=== PATIENT | female | born 2000 | race Caucasian/White ===

== ENCOUNTER 2020-12-03 19:05 | Emergency (ER) | payer BC, SELFPAY ==
--- NOTE | ~2020-12-03 | XR_ITS ---
EXAMINATION: XR chest 1V portable 12/03/2020 19:33 INDICATION: Chest discomfort PROCEDURE: 2 view chest COMPARISON: No prior studies for comparison. FINDINGS: The lungs are clear. The cardiomediastinal silhouette is within normal limits. There are no pleural effusions. There is no pneumothorax suspected. IMPRESSION: 1: NO ACUTE CARDIOPULMONARY DISEASE. Reviewed, dictated and finalized at location A.
--- NOTE | 2020-12-03 19:20 | ECG_ITS ---
Measurements Intervals [place] Rate: 121 P: 70 NH: 120 QRS: 2 QRSD: 85 T: 20 QT: 317 QTc: 451 Interpretive Statements SINUS TACHYCARDIA BORDERLINE ST ABNORMALITY- ANTEROLAT/INF LEADS BASELINE ARTIFACT- II, III, AVR, AVF, V2-V6 ABNORMAL ECG Electronically Signed On 12-03-2020 20:15:05 CDT by Gokul Hearn D.O.
--- NOTE | 2020-12-03 19:25 | ED.GENADULT ---
HPI - General Adult General Chief complaint: Chest Pain Stated complaint: chest pain Time Seen by Provider: 12/03/20 19:12 History of Present Illness HPI narrative: Patient 20-year-old female presents the emergency department with chief complaint of chest pain and not feeling well. The patient reports that yesterday she started taking Lexapro 10 mg and since then started feeling nauseated had a feeling of anxiety throughout her entire body and felt very jittery. The patient reports she is never been on this medication before in the past reports that its not improved by anything nor is it worsened by anything. The patient states she feels extremely anxious right now the patient denies abdominal pain denies direct chest pain with this. Related Data Home Medications Medication Instructions Recorded Confirmed escitalopram oxalate mg 12/03/20 Allergies Allergy/AdvReac Type Severity Reaction Status Date / Time No Known Allergies Allergy Verified 12/03/20 20:01 Review of Systems Review of Systems: Narrative: A 10 system review of systems was completed on the patient and is negative except for what is stated in the HPI. Nursing and ancillary documentation was reviewed. PMFSH Comments Patient denies illicit drug use Exam Narrative: Exam Narrative: GENERAL: Well-appearing, well-nourished, and in no acute distress. HEAD: Normocephalic, atraumatic. EYES: PERRLA and EOMI. ENT: Nares clear, no rhinorrhea or epistaxis. Mucous membranes moist. NECK: Supple. CHEST: Clear to auscultation. No respiratory distress. HEART: Regular rate and rhythm. No murmur heard. Normal peripheral pulses. ABDOMEN: Soft, nontender, nondistended, normal active bowel sounds. EXTREMITIES: Normal range of motion. No edema. SKIN: Warm, dry, no rash. NEURO: No focal deficits. Alert and oriented x3. PSYCH: Normal mood and affect. Course Vital Signs Vital signs: Vital Signs Temperature 37.1 C 12/03/20 20:03 Pulse Rate 118 H 12/03/20 20:03 Respiratory Rate 12/03/20 20:03 Blood Pressure 126/78 12/03/20 20:03 Pulse Oximetry 100 12/03/20 20:03 Temperature 37.1 C 12/03/20 20:03 Pulse Rate 118 H 12/03/20 20:03 Respiratory Rate 12/03/20 20:03 Blood Pressure 126/78 12/03/20 20:03 Pulse Oximetry 100 12/03/20 20:03 Medical Decision Making Vital Signs Vital Signs: Vital Signs Temperature 37.1 C 12/03/20 20:03 Pulse Rate 118 H 12/03/20 20:03 Respiratory Rate 20 12/03/20 20:03 Blood Pressure 126/78 12/03/20 20:03 Pulse Oximetry 100 12/03/20 20:03 Temperature 37.1 C 12/03/20 20:03 Pulse Rate 118 H 12/03/20 20:03 Respiratory Rate 12/03/20 20:03 Blood Pressure 126/78 12/03/20 20:03 Pulse Oximetry 100 12/03/20 20:03 Lab Data Result diagrams: 12/03/20 20:27 12/03/20 20:27 Labs: Lab Results 12/03/20 12/03/20 12/03/20 Range/Units 20:27 20:27 20:27 WBC 7.1 (4.5-10.0) K/mm3 RBC 4.56 (4.2-5.4) M/mm3 Hgb 12.9 (12.0-15.0) g/dL Hct 39.2 (37.0-47.0) % MCV 86.0 (80-100) fl MCH 28.3 (26-34) pg MCHC 32.9 (32-36) g/dl RDW 12.4 (11.5-14.5) % Plt Count 287 (150-375) k/mm3 MPV 10.6 H (7.4-10.4) fl Immature Gran % (Auto) 0.3 (0-0.5) % Neut % (Auto) 62.3 (45.5-73.1) % Lymph % (Auto) 27.3 (18.3-44.2) % [place] % (Auto) 8.5 (2.6-8.5) % Eos % (Auto) 0.8 (0-4.4) % Baso % (Auto) 0.8 (0.2-1.2) % Lymph # (Auto) 1.95 (0.9-3.2) K/mm3 [place] # (Auto) 0.6 (0.1-0.6) K/mm3 Eos # (Auto) 0.1 (0-0.3) K/mm3 Baso # (Auto) 0.1 (0.0-0.1) K/mm3 Abs Immat Gran (auto) 0.02 (0.00-0.031) K/mm3 Absolute Neuts (auto) 4.4 (1.3-6.7) K/mm3 Absolute Nucleated RBC 0.0 (0.0-0.012) K/mm3 Nucleated RBC % 0.0 (0.0-0.2) % Sodium Cancelled Potassium Cancelled Chloride Cancelled Carbon Dioxide Cancelled Anion Gap Cancelled BUN Cancelled
[2020-12-03 20:03] VITALS: BP 126/78; PULSE 118; RESP 20; TEMP 37.1; O2SAT 100
[2020-12-03] MEDS: LORazepam INJ (*CRX) 2 MG/ML VIAL 1 MG IV PUSH (20:11)
[2020-12-03] MEDS: SODIUM CHLORIDE 0.9% IV 1,000 ML 999 ML IV CONT (20:11)
[2020-12-03] MEDS: ONDANSETRON INJ 4 MG/2 ML VIAL IV PUSH (20:11)
[2020-12-03 20:33] LABS: Basophils Absolute Auto 0.1 K/mm3 (0.0-0.1); Basophils Percent Auto 0.8 % (0.2-1.2); Eosinophils Absolute Auto 0.1 K/mm3 (0-0.3); Eosinophils Percent Auto 0.8 % (0-4.4); Hematocrit 39.2 % (37.0-47.0); Hemoglobin 12.9 g/dL (12.0-15.0); Immature Granulocyte Absolute 0.02 K/mm3 (0.00-0.031); Immature Granulocyte Percent A 0.3 % (0-0.5); Lymphocytes Absolute Auto 1.95 K/mm3 (0.9-3.2); Lymphocytes Percent Auto 27.3 % (18.3-44.2); Mean Corpuscular HGB Conc 32.9 g/dl (32-36); Mean Corpuscular Hemoglobin 28.3 pg (26-34); Mean Platelet Volume 10.6 fl (7.4-10.4); Monocytes Absolute Auto 0.6 K/mm3 (0.1-0.6); Monocytes Percent Auto 8.5 % (2.6-8.5); Neutrophils Absolute Auto 4.4 K/mm3 (1.3-6.7); Neutrophils Percent Auto 62.3 % (45.5-73.1); Platelet Count Result 287 k/mm3 (150-375); Red Blood Count 4.56 M/mm3 (4.2-5.4); Red Cell Distribution Width 12.4 % (11.5-14.5); White Blood Count 7.1 K/mm3 (4.5-10.0)
[2020-12-03 20:57] LABS: Lactic Acid Reflex 1.5 mmol/L (0.7-2.1)
[2020-12-03 20:59] LABS: Alanine Aminotransferase 12 U/L (4-35); Albumin Level 4.6 g/dL (3.5-5.1); Alkaline Phosphatase 66 U/L (38-126); Anion Gap 10 mmol/L (8-16); Aspartate Amino Transferase 26 U/L (14-36); Bilirubin,Total 1.2 mg/dL (0.2-1.3); Blood Urea Nitrogen 13 mg/dL (7-17); Calcium 9.3 mg/dL (8.4-10.2); Carbon Dioxide 25 mmol/L (22-30); Chloride 105 mmol/L (98-107); Estimated CRCL calculation 88 ml/min; Estimated Glomerular Filt Rate > 60; Glucose 98 mg/dL (65-105); Magnesium 1.8 mg/dL (1.6-2.3); Potassium 3.8 mmol/L (3.4-5.0); Sodium 140 mmol/L (137-145)
[2020-12-03 21:10] LABS: Troponin I < 0.012 ng/mL (0.000-0.034)
[2020-12-03 21:14] VITALS: BP 126/78; PULSE 86; RESP 21; O2SAT 100
== END 2020-12-03 21:17 | disposition home or self-care (01) ==
PROVIDERS: Emergency Provider Emergency Medicine; PCP Physician Assistant
DX: R07.9 Chest pain, unspecified (principal); R11.0 Nausea; T43.225A Adverse effect of selective serotonin reuptake inhibitors, initial encounter
CPT/HCPCS: 36415; 71045; 80053; 83605; 83735; 84484; 85025; 93005; 96361; 96374; 96375; 99284; J2060; J2405; J7030

== ENCOUNTER 2021-05-01 13:29 | Emergency (ER) | payer BC, SELFPAY ==
[2021-05-01 13:37] VITALS: BP 109/70; PULSE 100; RESP 16; TEMP 36.4; O2SAT 99
--- NOTE | 2021-05-01 15:11 | ED.DENTAL ---
HPI - Dental/Oral General Chief complaint: Dental/Oral Stated complaint: left cheek swollen Time Seen by Provider: 05/01/21 15:11 Source: patient Mode of arrival: ambulatory Limitations: no limitations History of Present Illness HPI Narrative: Kandi Dow is a 20-year-old female with history of anxiety and depression, who comes with left cheek swelling that may be due to dental fracture or dental abscess Related Data Home Medications Medication Instructions Recorded Confirmed escitalopram oxalate mg 12/03/20 Allergies Allergy/AdvReac Type Severity Reaction Status Date / Time escitalopram [From Lexapro] Allergy Palpitation Verified 05/01/21 14:12 s Review of Systems Review of Systems: CONSTITUTIONAL: Denies fever, chills, sweats. EYES: Denies visual changes, redness, discharge. ENT: Denies rhinorrhea, congestion, sore throat, otalgia. CARDIOVASCULAR: Denies chest pain, palpitations, edema. RESPIRATORY: Denies dyspnea, wheezing, cough GASTROINTESTINAL: Denies abdominal pain, nausea, vomiting, diarrhea. GENITOURINARY: Denies dysuria, hematuria, abnormal discharge SKIN: Denies rash or itching. NEUROLOGIC: Denies numbness, or focal weakness. PSYCHIATRIC: Denies anxiety or depression. Left-sided cheek swelling/tenderness PMFSH Past Medical History Medical History Anxiety Depression Social History Social History (Updated 05/01/21 @ 15:15 by Kelsie Villela CNP) Smoking status: Current every day smoker Tobacco type: e-cigarettes/vaping Alcohol intake: current Comments At time of signature, I agree with nursing past medical, surgical, social and family history. There is no relevant family history pertinent to the presenting complaint. Exam Narrative: GENERAL: This is a well-nourished, well-developed patient, in moderate distress. HEAD: normocephalic, atraumatic. EYES: Sclera clear/white. Vision is grossly intact. EARS: External ears normal. Hearing grossly intact. NOSE: External nose normal without nasal discharge, nares without redness, no rhinorrhea. THROAT: Mucous membranes moist, posterior pharynx erythema, left cheek tenderness and swelling, tender upper gum posterior molar NECK: Neck supple, non-tender CARDIOVASCULAR: Regular rate and rhythm without murmurs, gallops, or rubs. RESPIRATORY: Clear to auscultation. Breath sounds equal bilaterally. No wheezes, rales, or rhonchi. GASTROINTESTINAL: Abdomen soft, SKIN: warm, intact with no suspicious lesions or rash, good texture and turgor. NEURO: awake, alert, and oriented to person, place and time. There were no obvious focal neurologic abnormalities. Steady gait EXTREMITIES: Normal range of motion. BACK: Nontender without deformity Course Course Emergency Course: Patient comes with swollen left cheek and possible dental problem Started on amoxicillin and ibuprofen Vital Signs Vital signs: Vital Signs Temperature 97.6 F 05/01/21 13:37 Pulse Rate 100 05/01/21 13:37 Respiratory Rate 16 05/01/21 13:37 Blood Pressure 109/70 05/01/21 13:37 Pulse Oximetry 99 05/01/21 13:37 Temperature 97.6 F 05/01/21 13:37 Pulse Rate 100 05/01/21 13:37 Respiratory Rate 16 05/01/21 13:37 Blood Pressure 109/70 05/01/21 13:37 Pulse Oximetry 99 05/01/21 13:37 MDM - Dental/Oral Differential Diagnosis Differential diagnosis: Likely gingival abscess, dental caries, toothache, dental abscess and other Critical Care Time Critical Care Time Critical Care Time: No Discharge Plan Discharge Clinical Impression: Dental abscess Patient Disposition: Home, Self-Care Condition: Stable Instructions: Antibiotic Form, Dental Abscess (ED) Additional Instructions: Use ibuprofen for pain as needed Gargle with salt water Prescriptions: New amoxicillin 875 mg tablet 875 mg PO Q12H Qty: 20 RF: 0 ibuprofen 600 mg tablet 600 mg PO TID PRN (Reason: p
== END 2021-05-01 15:25 | disposition home or self-care (01) ==
PROVIDERS: Emergency Provider Nurse Practitioner
DX: K04.7 Periapical abscess without sinus (principal); F17.290 Nicotine dependence, other tobacco product, uncomplicated
CPT/HCPCS: 99213; G0463

== ENCOUNTER 2021-12-11 12:30 | Day surgery (SDC) | payer BC, SELFPAY ==
[2021-12-11] VITALS (13 sets, daily range): BP systolic 86–126; BP diastolic 44–76; PULSE 74–147; RESP 16–22; TEMP 36.6–36.9; O2SAT 98–100
--- NOTE | ~2021-12-11 | CT_ITS ---
EXAMINATION: CT abdomen pelvis w con DATE: 12/11/2021 13:40 INDICATION: Right lower quadrant abdominal pain, nausea TECHNIQUE: Computed tomography (CT) of the abdomen and pelvis was performed with 96 CC Omnipaque 300 intravenous contrast. Automated exposure control and iterative reconstruction technique were employed . Exam dose: 171.66 mGy-cm total exam DLP. COMPARISON: None. FINDINGS: The lung bases are clear. Normal heart size. No pericardial or pleural effusion. The liver, gallbladder, bile ducts, spleen, pancreas and pancreatic duct are unremarkable. Normal mor phology of the adrenal glands. No renal mass lesion or urinary tract calculus or hydroureteronephrosi s. The uterus and urinary bladder are unremarkable. Approximately 5 x 6.4 cm left adnexal soft tissue mass or complicated fluid collection with thin soft tissue rim. There is mild free fluid accumulation in the dependent right lower pelvis. 5.4 x 6.2 mm appendicolith with severe thickening of the appendiceal wall or dilatation of the append ix up to 1.5 cm. There is surrounding fluid and soft tissue fat infiltration consistent with prominen t periappendiceal inflammation. No suspicious osteolytic or osteosclerotic lesions are noted. IMPRESSION: Large calcified appendicolith, appendicitis, prominent periappendiceal inflammation and mild fluid accumulation 5 x 6.4 cm left adnexal cystic mass, possibly hemorrhagic cyst Mild free fluid in the dependent right pelvis Reviewed, dictated and finalized at [facility] Reviewed, dictated and finalized at [facility]. IMPRESSION: Large calcified appendicolith, appendicitis, prominent periappendi ceal inflammation and mild fluid accumulation 5 x 6.4 cm left adnexal cystic mass, possibly hemorrhagic cyst Mild free fluid in the dependent right pelvis
[2021-12-11 13:00] LABS: Basophils Percent Auto 0.4 % (0.2-1.2); Eosinophils Percent Auto 0.2 % (0-4.4); Hematocrit 37.7 % (37.0-47.0); Hemoglobin 12.1 g/dL (12.0-15.0); Immature Granulocyte Absolute 0.04 K/mm3 (0.00-0.031); Immature Granulocyte Percent A 0.4 % (0-0.5); Lymphocytes Absolute Auto 0.73 K/mm3 (0.9-3.2); Lymphocytes Percent Auto 7.2 % (18.3-44.2); Mean Corpuscular HGB Conc 32.1 g/dl (32-36); Mean Corpuscular Hemoglobin 27.1 pg (26-34); Mean Corpuscular Volume 84.5 fl (80-100); Mean Platelet Volume 10.4 fl (7.4-10.4); Monocytes Absolute Auto 0.5 K/mm3 (0.1-0.6); Neutrophils Absolute Auto 8.7 K/mm3 (1.3-6.7); Neutrophils Percent Auto 86.8 % (45.5-73.1); Platelet Count Result 321 k/mm3 (150-375); Red Blood Count 4.46 M/mm3 (4.2-5.4); White Blood Count 10.1 K/mm3 (4.5-10.0)
[2021-12-11 13:03] LABS: Appearance Urine Clear (Clear); Bilirubin Urine 1+ (Negative); Blood Urine Trace-lysed (Negative); Color Urine Yellow (Yellow); Glucose Urine UA Negative (Negative); Ketones Urine 4+ mg/dL (Negative); Leukocyte Esterase Ur Negative LEU/UL (Negative); Nitrate Urine Negative (Negative); Protein Urine Negative (Negative); Specific Grav Ur 1.025 (1.001-1.035)
[2021-12-11 13:08] LABS: Mucus Urine Moderate /lpf; Squamous Epithelial Cell Urine Moderate /hpf (Few); WBC Urine 0-3 /hpf
[2021-12-11 13:09] LABS: Add Urine Microscopic? YES
[2021-12-11 13:09] LABS: Alanine Aminotransferase 10 U/L (6-35); Albumin Level 4.5 g/dL (3.5-5.1); Alkaline Phosphatase 89 U/L (38-126); Anion Gap 11 mmol/L (8-16); Aspartate Amino Transferase 21 U/L (14-36); Bilirubin,Total 1.3 mg/dL (0.2-1.3); Blood Urea Nitrogen 11 mg/dL (7-17); Calcium 9.1 mg/dL (8.4-10.2); Carbon Dioxide 23 mmol/L (22-30); Chloride 102 mmol/L (98-107); Estimated CRCL calculation 87 ml/min; Estimated Glomerular Filt Rate > 60; Glucose 85 mg/dL (65-110); Lipase 50 U/L (23-300); Potassium 3.9 mmol/L (3.4-5.0); Sodium 136 mmol/L (137-145)
--- NOTE | 2021-12-11 14:21 | ED.GENADULT ---
HPI - General Adult General Chief complaint: Abdominal Pain Stated complaint: RLQ abd pain Time Seen by Provider: 12/11/21 12:55 History of Present Illness HPI narrative: 21-year-old female presenting to the emergency department for evaluation of right lower quadrant pain. Patient states approximately 2 hours prior to arrival she began having right lower quadrant pain. Patient denies any associated nausea vomiting or diarrhea with it. Patient denies any previous abdominal surgical history. Patient denies any prior history of ovarian cysts or ovarian torsion. Patient is approximately 1.5 weeks until the start of her next menstrual cycle. Patient describes midline suprapubic pain that radiates to her right lower quadrant and up to her right upper quadrant. Related Data Home Medications Medication Instructions Recorded Confirmed desogestrel 0.15 mg-ethinyl tablet 12/11/21 12/11/21 estradiol 0.03 mg tablet (Isibloom) sertraline 50 mg tablet tablet 12/11/21 Allergies Allergy/AdvReac Type Severity Reaction Status Date / Time escitalopram [From Lexapro] Allergy Palpitation Verified 12/11/21 12:38 s Review of Systems Review of Systems: CONSTITUTIONAL: Denies fever, chills, or sweats. EYES: Denies visual changes, redness, or discharge. ENT: Denies rhinorrhea, congestion, sore throat, or otalgia. CARDIOVASCULAR: Denies chest pain, palpitations, or edema. RESPIRATORY: Denies cough or dyspnea. GASTROINTESTINAL: See HPI GENITOURINARY: Denies dysuria or hematuria. SKIN: Denies rash or itching. MUSCULOSKELETAL: Denies back pain, joint pain, or myalgia. NEUROLOGIC: Denies headache, numbness, or weakness. [facility] Past Medical History Medical History (Updated 12/11/21 @ 19:[address] MD) Anxiety Depression Depression Vaping nicotine dependence, non-tobacco product Social History Social History (Updated 05/01/21 @ 15:15 by Kelsie Villela CNP) Smoking status: Current every day smoker Tobacco type: e-cigarettes/vaping Alcohol intake: current Exam Narrative: APPEARANCE: Well appearing, no pain, no distress, well-nourished. HEAD: normocephalic, atraumatic. EYES: PERRLA/EOMI, conjunctivae clear. NOSE: Normal no drainage THROAT: Pharynx clear, no exudate. NECK: Supple. No adenopathy, no masses. RESPIRATORY: Airway patent, respirations nonlabored. Clear to auscultation bilaterally, no rales, rhonchi, wheezing. CARDIOVASCULAR: Regular rate and rhythm without murmurs rubs or gallops. ABDOMINAL: Suprapubic and right lower quadrant tenderness to palpation. No rebound, no guarding MUSCULOSKELETAL: Moves all extremities. Strength/ROM intact, No edema, No calf tenderness. NEURO: Alert. Cranial nerves II through XII intact. Grossly intact SKIN: Warm, dry. Normal Color PSYCHIATRIC: Normal affect/mood. Course Course Emergency Course: CT scan showed evidence of appendicitis. Case discussed with Dr. Claudio from surgery due to the appendicitis and significant appendicolith. Case was also discussed with Dr. Calderon due to the left-sided adnexal cystic mass. 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 Vital Signs Vital signs: Vital Signs Temperature 98.4 F 12/11/21 12:35 Pulse Rate 147 H 12/11/21 12:35 Respiratory Rate 22 H 12/11/21 12:35 Blood Pressure 107/60 12/11/21 12:35 Pulse Oximetry 100 12/11/21 12:35 Temperature 98.3 F 12/11/21 17:00 Pulse Rate 78 12/11/21 17:00 Respiratory Rate 16 12/11/21 17:00 Blood Pressure 118/70 12/11/21 17:00 Pulse Oximetry 100 12/11/21 17:00 Medical Decision Making Vital Signs Vital Signs: Vital Signs Temperature 98.4 F 12/11/21 12:35 Pulse Rate 147 H 12/11/21 12:35 Respiratory Rate 22 H 12/11/21 12:35 Blood Pressure 107/60 12/11/21 12:35 Pulse Oximetry 100 12/11/21 12:35 Temperature 98.3 F 12/11/21 17:00 Pulse Rate 78 12/11/21 17:00 Respiratory Rate 16 12/11/21 17:00 Blood Pressure 1
[2021-12-11] MEDS: SODIUM CHLORIDE 0.9% IV 1,000 ML 999 ML IV CONT (14:50)
[2021-12-11] MEDS: SODIUM CHLORIDE 0.9% IV 1,000 ML 125 ML IV CONT (16:49)
--- NOTE | 2021-12-11 17:02 | PM.IMHP ---
H&P: HPI History of Present Illness Date/Time: 12/11/21 17:02 Chief Complaint: Lower abdominal pain right more than left Narrative: This is 21-year-old female who presented to the emergency department for evaluation of right lower quadrant pain which she states started while she was at work yesterday at around 9:30 a.m.. She states she came home 1 hour leave from work at about 4:00 p.m. yesterday she ate minimally the rest the evening. She has not had anything to eat since going to bed last evening has had a few sips of water today. The pain is gradually got worse so she came to the emergency room today. Patient states that the pain that had been across most of the lower abdomen seemed to become more to the right lower quadrant.? Patient denies any associated nausea vomiting or diarrhea with it.? Patient denies any previous abdominal surgical history.? Patient denies any prior history of ovarian cysts or ovarian torsion.? Patient is approximately 1.5 weeks until the start of her next menstrual cycle. Patient describes midline suprapubic pain that radiates to her right lower quadrant and up to her right upper quadrant. Workup in the emergency room revealed a slightly elevated white count. Otherwise labs were pretty unremarkable. Urinalysis was normal other than some white cells in the urine but there were also epithelial cells. CT scan however showed both apparent uncomplicated appendicitis with an appendicolith and surrounding inflammation a but also a 6 cm suspected hemorrhagic left ovarian cyst. I have discussed this with Dr. Tillman in the ED and also with Dr. Elva Mckenna . Review of Systems Review of Systems: All systems reviewed & are unremarkable except as noted in HPI and below (HPI) Constitutional: Constitutional: Reports as per HPI, Denies chills and Denies fever(s) Eyes: Eyes: Reports no additional eye complaints ENT: Reports Normal hearing present and Denies dizziness Cardiovascular: Cardiovascular: Reports no additional cardiovascular complaints, Denies chest pain and Denies irregular heart rhythm Respiratory: Respiratory: Reports no additional respiratory complaints Gastrointestinal: Gastrointestinal: Reports no additional gastrointestinal complaints, Denies abdominal pain and Denies bloating Genitourinary: Genitourinary: Denies hematuria Comments: Patient has never been . test in the ED today prior to CT was negative. Last menstrual cycle was end of October 2021 Musculoskeletal: Musculoskeletal: Denies back pain Integumentary/Breasts: Skin/Breast: Reports system reviewed and no additional complaints, except as docu Neurologic: Reports Normal hearing present, Denies Abnormal speech present, Denies confusion and Denies dizziness Psychiatric: Psychiatric: Reports no additional psychiatric complaints and Denies confusion Endocrine: Endocrine: Reports no additional endocrine complaints Hematologic/Lymphatic: Hematologic/Lymphatic: Denies easy bleeding and Denies easy bruising Allergic/Immunologic: Allergic/Immunologic: Reports no additional allergic/immunologic complaints PMF Past Medical History Medical History (Updated 12/11/21 @ 17:58 by Jeffery Claudio MD) Anxiety Depression Depression Vaping nicotine dependence, non-tobacco product Social History Social History (Updated 05/01/21 @ 15:15 by Kelsie Villela CNP) Smoking status: Current every day smoker Tobacco type: e-cigarettes/vaping Alcohol intake: current Meds Home Medications and Allergies Home Medications Medication Instructions Recorded Confirmed Type desogestrel 0.15 mg-ethinyl tablet 12/11/21 12/11/21 History estradiol 0.03 mg tablet (Isibloom) sertraline 50 mg tablet tablet 12/11/21 History Allergies Allergy/AdvReac Type Severity Reaction Status Date / Time escitalopram [From Lexapro] Allergy Palpitation Verified 12/11/21 12:38 s Vital Signs Vital Signs - 24 hr
--- NOTE | 2021-12-11 17:05 | WPDANESEPPF ---
Anes - Initial Pre Proc Eval Procedure: Lap appendectomy Date/Time: 12/11/21 17:05 Surgeon: Jeffery Claudio MD Pre Op Diagnosis: Acute appendicitis Pre Op Diagnosis: Acute Appendicitis,Left Adnexal Mass Patient Data Age: 21 Gender: F Height: 1.65 m Weight: 44 kg Last Vital Signs Temp 36.8 C 12/11/21 16:00 Pulse 74 12/11/21 16:00 Resp 16 12/11/21 16:00 BP 120/76 12/11/21 16:00 Pulse Ox 100 12/11/21 16:00 Allergies Allergy/AdvReac Type Severity Reaction Status Date / Time escitalopram [From Lexapro] Allergy Palpitation Verified 12/11/21 12:38 s Home Medications Medication Instructions Recorded Confirmed Type desogestrel 0.15 mg-ethinyl tablet 12/11/21 12/11/21 History estradiol 0.03 mg tablet (Isibloom) sertraline 50 mg tablet tablet 12/11/21 History Laboratory Tests 12/11/21 12/11/21 12/11/21 12:51 12:52 12:52 WBC 10.1 K/mm3 H K/mm3 (4.5-10.0) RBC 4.46 M/mm3 M/mm3 (4.2-5.4) Hgb 12.1 g/dL g/dL (12.0-15.0) Hct 37.7 % % (37.0-47.0) MCV 84.5 fl fl (80-100) MCH 27.1 pg pg (26-34) MCHC 32.1 g/dl g/dl (32-36) RDW 13.0 % % (11.5-14.5) Plt Count 321 k/mm3 k/mm3 (150-375) MPV 10.4 fl fl (7.4-10.4) Immature Gran % (Auto) 0.4 % % (0-0.5) Neut % (Auto) 86.8 % H % (45.5-73.1) Lymph % (Auto) 7.2 % L % (18.3-44.2) [place] % (Auto) 5.0 % % (2.6-8.5) Eos % (Auto) 0.2 % % (0-4.4) Baso % (Auto) 0.4 % % (0.2-1.2) Lymph # (Auto) 0.73 K/mm3 L K/mm3 (0.9-3.2) [place] # (Auto) 0.5 K/mm3 K/mm3 (0.1-0.6) Eos # (Auto) 0.0 K/mm3 K/mm3 (0-0.3) Baso # (Auto) 0.0 K/mm3 K/mm3 (0.0-0.1) Abs Immat Gran (auto) 0.04 K/mm3 H K/mm3 (0.00-0.031) Absolute Neuts (auto) 8.7 K/mm3 H K/mm3 (1.3-6.7) Absolute Nucleated RBC 0.0 K/mm3 K/mm3 (0.0-0.012) Nucleated RBC % 0.0 % % (0.0-0.2) Sodium 136 mmol/L L mmol/L (137-145) Potassium 3.9 mmol/L mmol/L (3.4-5.0) Chloride 102 mmol/L mmol/L (98-107) Carbon Dioxide 23 mmol/L mmol/L (22-30) Anion Gap 11 mmol/L mmol/L (8-16) BUN 11 mg/dL mg/dL (7-17) Creatinine 0.60 mg/dL L mg/dL (0.7-1.0) Estim Creat Clear Calc 87 ml/min ml/min Estimated GFR > 60 (59 - ) Glucose 85 mg/dL mg/dL (65-110) Calcium 9.1 mg/dL mg/dL (8.4-10.2) Total Bilirubin 1.3 mg/dL mg/dL (0.2-1.3) AST 21 U/L U/L (14-36) ALT 10 U/L U/L (6-35) Alkaline Phosphatase 89 U/L U/L (38-126) Total Protein 9.0 g/dL H g/dL (6.3-8.2) Albumin 4.5 g/dL g/dL (3.5-5.1) Lipase 50 U/L U/L (23-300) Urine Color Yellow (Yellow) Urine Appearance Clear (Clear) Urine pH 6.0 (5.0-9.0) Ur Specific [place] 1.025 (1.001-1.035) Urine Protein Negative mg/dL mg/dL (Negative) Urine Glucose (UA) Negative mg/dL mg/dL (Negative) Urine Ketones 4+ mg/dL H mg/dL (Negative) Ur Blood (Man) Trace-lysed (Negative) Urine Nitrate Negative (Negative) Urine Bilirubin 1+ H (Negative) Urine Urobilinogen 1.0 mg/dL mg/dL (<2.0) Leukocyte Esterase Rfl Negative GLALO/UL GALLO/UL (Negative) Urine RBC 3-5 /hpf H /hpf (0-2) Urine WBC 0-3 /hpf /hpf Ur Squamous Epith Cells Moderate /hpf H /hpf (Few) Urine Mucus Moderate /lpf H /lpf Patient hx anesthesia problems: none Family hx anesthesia problems: none Results Review: All pre-operative results and documents have been reviewed as part of the pre-operative evaluation. [facility] Past Medical History Medical History (Reviewed 05/01/
--- NOTE | 2021-12-11 17:46 | WPDHPUPDATE1 ---
History and Physical Update Update Date/Time: 12/11/21 17:46 History and Physical has been reviewed, including an updated exam of the patient. There are NO changes in the patient's condition. Risks, benefits, and alternatives have been discussed and questions answered. Patient agrees to proceed with procedure.
[2021-12-11] MEDS: LACTATED RINGERS 1,000 ML 30 ML IV CONT ×2 (17:50→20:31)
[2021-12-11] MEDS: BUPIVACAINE/EPINEPHRINE 0.25% 50 ML VIAL 30 ML INFILTRATE (17:58)
--- NOTE | 2021-12-11 20:42 | W.PM.PROC2 ---
Procedure Note - Detailed Date of Procedure 12/11/21 Pre-op Diagnosis 1. Acute Appendicitis 2. Left Adnexal Mass (suspected hemorrhagic cyst by CT) Post-op Diagnosis Same Procedure Performed Laparoscopic appendectomy Surgeon Jeffery Claudio MD Bacteriologist [employer]. OR Proof Clerk Anesthesia General Indications This patient presented to the emergency room with lower abdominal pain moving to the right lower quadrant over 24 hours. He also had loss of appetite. She had just a mildly elevated white count but CT scan suggested a significantly dilated appendix at 1.5 cm with a appendicoliths and surrounding inflammatory change. Therefore, I discussed both antibiotic treatment and surgery with the patient her . Since she has an appendicoliths she has less of a chance of doing well with just antibiotics therefore, I recommended surgical intervention with laparoscopic appendectomy and they agreed. We also talked prior to surgery with a weakening doctor Dr. Mccrary because the patient had the cyst noted he reviewed the CT scan as me to take pictures of it but be we decided to leave it alone and he will follow it up as an outpatient. Patient was amenable to same. Findings Appendix was line with its tip pointing toward the liver along the right colic gutter and its base curled inferior laterally. This made it difficult to dissect up in out of the inflammatory rind around it. There was also a large white appearing ovarian cyst on the left there was a very small superficial like 3 mm dark apparent hemorrhagic cyst on the right ovary Description of Procedure The patient was seen again in the Holding Room. The risks, benefits, complications, treatment options, and expected outcomes were discussed with the patient and/or family. The possibilities of reaction to medication, pulmonary aspiration, perforation of viscus, bleeding, recurrent infection, finding a normal appendix, the need for additional procedures, failure to diagnose a condition, and creating a complication requiring transfusion or operation were discussed. There was concurrence with the proposed plan and informed consent was obtained. The site of surgery was properly noted/marked. The patient was taken to Operating Room, and a time out was preformed which identified this as the proper patient, and the procedure verified as laparoscopic appendectomy, possible open. The patient was placed in the supine position and general anesthesia was induced, along with placement of an orogastric tube, SCD hose, and a Luong catheter. The abdomen was prepped and draped in a sterile fashion. A 5 mm umbilical incision was made and the peritoneal cavity was accessed using the Veress needle technique. We began insufflation but when the pressure was up to about 12 mmHg the patient had a episode of bradycardia. Will allow the pressure to be released and then we waited until her heart rate came back up to normal after anesthesia gave some medication and then we proceeded as per normal. Once the abdomen was insufflated to 14 mmHg pressure a 5 mm XL trocar over the 0? 5 mm scope was carefully twisted into the abdomen via the umbilicus. The pneumoperitoneum was then established to steady pressure of 14 mm Hg. A 12 mm laparoscopic port was placed through a transverse suprapubic incision. An additional 5 mm cannula was then placed in in the left upper quadrant at the level assisted between the left costal margin and the umbilicus under direct vision. A careful evaluation of the entire abdomen was carried out. The patient was placed in Trendelenburg and left lateral decubitus position. The small intestines were retracted in the cephalad and left lateral direction away from the pelvis and right lower quadrant. The patient was found to have an enlarged and inflamed appendix that was extending into the right colic gutter with its tip pointing toward the liver. The tip of the appendix was quite bulbous almost appeared as if the
[2021-12-11] MEDS: ONDANSETRON INJ 4 MG/2 ML VIAL IV PUSH (22:02)
== END 2021-12-11 22:40 | disposition home or self-care (01) ==
LOC: ANHED 14:50 → ANH2MED 19:03 → ANHSURGERY 20:44
PROVIDERS: Emergency Provider Emergency Medicine; PCP Physician Assistant; Visit Provider Surgery
PROC: 0DTJ4ZZ Resection of Appendix, Percutaneous Endoscopic Approach (ICD-10-PCS; CPT 44970; principal; 2021-12-11 18:00)
DX: K35.80 Unspecified acute appendicitis (principal); N83.202 Unspecified ovarian cyst, left side; F41.9 Anxiety disorder, unspecified; F32.A Depression, unspecified; F17.290 Nicotine dependence, other tobacco product, uncomplicated
CPT/HCPCS: 44970; 36415; 74177; 80053; 81001; 81025; 83690; 85025; 87040; 88304; J0330; J2250; J2270; J2405; J2543; J2704; J7030; J7120; Q9967

== ENCOUNTER 2021-12-12 04:47 | Inpatient (IN) | payer BC, SELFPAY ==
[2021-12-12] VITALS (18 sets, daily range): BP systolic 95–120; BP diastolic 60–79; PULSE 90–138; RESP 16–32; TEMP 36.3–39.5; O2SAT 94–100; BMI 17.6
--- NOTE | ~2021-12-12 | CT_ITS ---
EXAMINATION: CT abdomen pelvis w con DATE: 12/12/2021 06:08 INDICATION: Abdominal pain and fever. History of appendectomy. TECHNIQUE: Computed tomography (CT) of the abdomen and pelvis was performed with 93 CC Omnipaque 300 intravenous contrast. Automated exposure control and iterative reconstruction technique were employed . Exam dose: 202.99 mGy-cm total exam DLP. COMPARISON: 12/11/2021 CT abdomen pelvis FINDINGS: New patchy bilateral lower lobe infiltrates, left greater than right, including possible as piration pneumonitis or pneumonia. Normal heart size. No pericardial or pleural effusion. Liver, gallbladder, bile ducts, spleen, pancreas, adrenal glands and kidneys are unremarkable. Normal caliber of the abdominal aorta. Prominent distention of the urinary bladder. Large left ovarian cyst is again noted. Status post appendectomy since 12/11/2021. There is postoperative intraperitoneal free air and some sotelo bcutaneous emphysema of the abdominal wall. There is mild fluid around the inferior tip of the liver and in the right paracolic gutter and along the dependent right lower quadrant and pelvis. Likely reactive moderate right lower quadrant mesenteric lymph node prominence. IMPRESSION: Status post appendectomy, with mild postoperative pneumoperitoneum and right lower quadr ant and pelvic fluid Bilateral lower lung infiltrates, left greater than right; consider aspiration pneumonitis or pneumon ia Large left ovarian cyst Reviewed, dictated and finalized at [facility]. Reviewed, dictated and finalized at [facility]. IMPRESSION: Status post appendectomy, with mild postoperative pneumoperitoneum and right lower quadrant and pelvic fluid Bilateral lower lung infiltrates, left greater than right; consider aspiration pneumonitis or pneumonia Large left ovarian cyst
--- NOTE | ~2021-12-12 | XR_ITS ---
EXAMINATION: XR chest 2V DATE: 12/13/2021 09:47 INDICATION: Pneumonia. TECHNIQUE: Frontal and lateral views of the chest were obtained. COMPARISON: CT abdomen and pelvis 12/12/2021, chest single view 12/03/2020 FINDINGS: There are airspace opacities in the lower lobes, left worse than right, consistent with pne umonia. There are trace pleural effusions. No pneumothorax. The heart size is normal. There is gas in anterior abdominal wall, consistent with recent surgery. IMPRESSION: 1. Pneumonia in the lower lobes, left worse than right. 2. Trace pleural effusions. Reviewed, dictated and finalized at [facility].
--- NOTE | 2021-12-12 04:57 | ED.GENADULT ---
HPI - General Adult General Chief complaint: Abdominal Pain <Harris Calderón MD - Last Filed: 12/12/21 04:59> Stated complaint: Abdominal Pain <Harris Calderón MD - Last Filed: 12/12/21 04:59> Time Seen by Provider: 12/12/21 04:49 <Harris Calderón MD - Last Filed: 12/12/21 04:59> History of Present Illness HPI narrative: Patient a 19-year-old female who presents the emergency department with chief complaint of abdominal pain fever and generalized malaise. The patient was in the hospital yesterday and had a laparoscopic appendectomy patient states she went home started having severe abdominal pain reports that she also spiked temperature this evening as well the patient states that she had some nausea with this no diarrhea reports that she has not been passing gas since surgery. <Harris Calderón MD - Last Filed: 12/12/21 04:59> Related Data Home medications: Home Medications Medication Instructions Recorded Confirmed desogestrel 0.15 mg-ethinyl 1 tablet PO HS 12/11/21 12/12/21 estradiol 0.03 mg tablet (Isibloom) sertraline 50 mg tablet 1 tablet PO HS 12/11/21 12/12/21 <Harris Calderón MD - Last Filed: 12/12/21 04:59> Allergies/adverse reactions: Allergies Allergy/AdvReac Type Severity Reaction Status Date / Time escitalopram [From Lexapro] Allergy Palpitation Verified 12/12/21 04:57 s <Harris Calderón MD - Last Filed: 12/12/21 04:59> Review of Systems Review of Systems: A 10 system review of systems was completed on the patient and is negative except for what is stated in the HPI. Nursing and ancillary documentation was reviewed. <Harris Calderón MD - Last Filed: 12/12/21 04:59> PMFSH Past Medical History Medical History: Medical History Anxiety Depression Depression Vaping nicotine dependence, non-tobacco product <Harris Calderón MD - Last Filed: 12/12/21 04:59> Family History Family History: Family History (Updated 12/12/21 @ 13:06 by Catia Roman RN) Grandparent Hypertension Sibling Asthma Sibling Asthma <Harris Calderón MD - Last Filed: 12/12/21 04:59> Social History Social History: Social History Smoking status: Current every day smoker Tobacco type: e-cigarettes/vaping Additional smoking assessment comments: one cartriage lasts one week. Alcohol intake: current Drinks per week: 0 Substance use: never Spiritual care concerns: No <Harris Calderón MD - Last Filed: 12/12/21 04:59> Exam Narrative: GENERAL: Well-appearing, well-nourished, and in no acute distress. HEAD: Normocephalic, atraumatic. EYES: PERRLA and EOMI. ENT: Nares clear, no rhinorrhea or epistaxis. Mucous membranes moist. NECK: Supple. CHEST: Clear to auscultation. No respiratory distress. HEART: Regular rate and rhythm. No murmur heard. Normal peripheral pulses. ABDOMEN: Soft mild tenderness to palpation, nondistended, normal active bowel sounds. EXTREMITIES: Normal range of motion. No edema. SKIN: Warm, dry, no rash. NEURO: No focal deficits. Alert and oriented x3. PSYCH: Normal mood and affect. <Harris Calderón MD - Last Filed: 12/12/21 04:59> Course VICE PRESIDENT/PA Physician Supervision For this patient encounter, I reviewed the VICE PRESIDENT or PA documentation, treatment plan, and medical decision making <Reji Street MD - Last Filed: 12/12/21 13:54> Reevaluation(s) Reevaluation #1: Case was discussed with surgeon on-call and patient is being admitted for observation. Patient was treated with Zosyn for thought for possibility of abdominal etiology of her fever. CT scan showed no acute abnormality from the surgery. CT did show possible pneumonia. Antibiotics and reevaluate to see if her fever respects. Pat
[2021-12-12] MEDS: ACETAMINOPHEN 325 MG TABLET 650 MG PO (05:03)
[2021-12-12] MEDS: SODIUM CHLORIDE 0.9% IV 1,000 ML 999 ML IV CONT (05:03)
[2021-12-12] MEDS: ONDANSETRON INJ 4 MG/2 ML VIAL IV PUSH ×2 (05:03→15:36)
[2021-12-12] MEDS: HYDROmorphone HCL INJ (*CRX) 1 MG/ML SYR IV PUSH ×3 (05:04→10:33)
[2021-12-12 05:15] LABS: Basophils Percent Auto 0.2 % (0.2-1.2); Hemoglobin 10.3 g/dL (12.0-15.0); Immature Granulocyte Absolute 0.02 K/mm3 (0.00-0.031); Immature Granulocyte Percent A 0.3 % (0-0.5); Lymphocytes Absolute Auto 0.56 K/mm3 (0.9-3.2); Lymphocytes Percent Auto 8.6 % (18.3-44.2); Mean Corpuscular HGB Conc 33.2 g/dl (32-36); Mean Corpuscular Hemoglobin 27.4 pg (26-34); Mean Corpuscular Volume 82.4 fl (80-100); Mean Platelet Volume 10.6 fl (7.4-10.4); Monocytes Absolute Auto 0.5 K/mm3 (0.1-0.6); Neutrophils Absolute Auto 5.5 K/mm3 (1.3-6.7); Neutrophils Percent Auto 83.9 % (45.5-73.1); Platelet Count Result 267 k/mm3 (150-375); Red Blood Count 3.76 M/mm3 (4.2-5.4); Red Cell Distribution Width 12.8 % (11.5-14.5); White Blood Count 6.5 K/mm3 (4.5-10.0)
[2021-12-12 05:27] LABS: INR 1.1; Prothrombin Time 13.7 Seconds (11.1-14.7)
[2021-12-12 05:28] LABS: Partial Thromboplastin Time 29.9 SECONDS (22.3-36.8)
[2021-12-12 05:29] LABS: Alanine Aminotransferase 10 U/L (6-35); Albumin Level 3.4 g/dL (3.5-5.1); Alkaline Phosphatase 65 U/L (38-126); Anion Gap 6 mmol/L (8-16); Aspartate Amino Transferase 26 U/L (14-36); Bilirubin,Total 0.6 mg/dL (0.2-1.3); Blood Urea Nitrogen 4 mg/dL (7-17); Calcium 7.9 mg/dL (8.4-10.2); Carbon Dioxide 23 mmol/L (22-30); Chloride 102 mmol/L (98-107); Estimated CRCL calculation 99 ml/min; Estimated Glomerular Filt Rate > 60; Glucose 121 mg/dL (65-110); Lipase 51 U/L (23-300); Magnesium 1.4 mg/dL (1.6-2.3); Potassium 3.8 mmol/L (3.4-5.0); Sodium 131 mmol/L (137-145)
[2021-12-12 05:29] LABS: Lactic Acid Reflex 1.4 mmol/L (0.7-2.0)
[2021-12-12 05:40] LABS: Troponin I < 0.012 ng/mL (0.000-0.034)
[2021-12-12 05:51] LABS: SARS-CoV-2 RNA PCR Negative
--- NOTE | 2021-12-12 12:35 | ADMGEN ---
This patient, Kandi Márquez, was admitted to Medical Room 261-01. Patient/family oriented to hospital policies and general routines including ID bracelet, bed and alarms, visiting hours, pain management, procedures, bathroom and other care routines, personal items, smoking policy, room service/diet, and visiting hours. Information on how to activate the Rapid Response Team has been discussed. Patient/Family are encouraged to report perceived risks to care and to ask questions if they do not understand what they are told or what they should do.
[2021-12-12] MEDS: SODIUM CHLORIDE 0.9% IV 1,000 ML 100 ML IV CONT (12:42)
[2021-12-12] MEDS: HYDROmorphone HCL INJ (*CRX) 1 MG/ML SYR 0.5 MG IV PUSH (15:36)
[2021-12-12] MEDS: MAGNESIUM SULF 2 GM/WATER 50ML 2 GM/50 ML BAG IVPB (17:13)
--- NOTE | 2021-12-12 17:41 | PM.IMHP ---
H&P: HPI History of Present Illness Date/Time: 12/12/21 17:41 Chief Complaint: Weakness and abdominal pain after laparoscopic cholecystectomy Narrative: This patient is a pleasant 21-year-old thin white female who last evening underwent laparoscopic appendectomy for a significantly dilated inflamed appendix in the right lower quadrant. She seemed to be doing well after surgery and went home but apparently did not take a pain pill before she went to sleep at home. She then woke up at 4:00 a.m. when the local anesthetic would of worn off and felt like she needed to urinate. When she tried to get up she was quite weak and when her tried to help her they could not get her to the bathroom and she states that she was having severe abdominal pain. Therefore, they called an ambulance and they brought her back to [facility] where she was seen by our ED MD's. She had a temperature to 103 F and therefore the ER doctor was concerned about her so he did another CT scan of the abdomen and pelvis again even though her CBC showed her hemoglobin to be stable. The CT showed some atelectasis versus pneumonia in the left lower lung ( patient is a vaporer but states that she did not vape at all when she was home last night). CT also showed inflammation in the right lower quadrant as suspected from her recent surgery but no hematoma or other sings of bleeding. We can see the jeannine that I used to staple off the base the appendix and the mesoappendix and also 1 or 2 clips I used to stop bleeding. there was no large hematoma or other changes when I reviewed this in Radiology with Dr. Grant today. Therefore, the patient is admitted as an observation patient for hydration monitoring,antibiotics, and I will repeat a chest x-ray in the morning and if chest x-ray is improved with further recovery and using incentive spirometer we may stop the antibiotics. ( On Zosyn Q 6 hours for now.). Review of Systems Constitutional: Comments: Review of Systems Review of Systems: ?? All systems review ed & are unremarka ble except as note d in HPI and below (HPI) Constitutional:??L Constitutional: Re ports as per HPI, Denies chills and Denies fever(s) Eyes:?? Eyes: Reports no a dditional eye comp laints ENT:?? Reports Normal hea ring present and D enies dizziness Cardiovascular:??L Cardiovascular: Re ports no additiona l cardiovascular c omplaints, Denies chest pain and Den ies irregular hear t rhythm Respiratory:?? Respiratory: Repor ts no additional r espiratory complai nts Gastrointestinal:? ? Gastrointestinal: Reports no additio nal gastrointestin al complaints, Den ies abdominal pain and Denies bloati ng Genitourinary:?? Genitourinary: Den ies hematuria? Com ments: Patient has never been pregna nt.? milan t in the ED today prior to CT was ne jorge.? Last? men strual cycle was e October 2021 Musculoskeletal:?? Musculoskeletal: D enies back pain Integumentary/Ailyn sts:?? Skin/Breast: Repor ts system reviewed and no additional complaint
[2021-12-12] MEDS: ACETAMINOPHEN 500 MG TABLET 1000 MG PO (18:22)
[2021-12-12] MEDS: FAMOTIDINE 20 MG TABLET PO (20:18)
[2021-12-12] MEDS: HYDROcodone/acetaminophen (*CRX) 7.5-325 MG TABLET 1 TAB PO (20:18)
[2021-12-12 20:43] LABS: Appearance Urine Clear (Clear); Bilirubin Urine Negative (Negative); Blood Urine Negative (Negative); Glucose Urine UA Negative (Negative); Ketones Urine Negative (Negative); Leukocyte Esterase Ur Negative LEU/UL (Negative); Nitrate Urine Negative (Negative); Protein Urine Negative (Negative); Urobilinogen Urine 0.2 mg/dL (<2.0)
[2021-12-12 20:44] LABS: Add Urine Microscopic? NO; Color Urine Light Yellow (Yellow)
[2021-12-13] MEDS: ONDANSETRON INJ 4 MG/2 ML VIAL IV PUSH ×2 (01:01→11:40)
[2021-12-13 04:46] VITALS: BP 98/49; PULSE 92; RESP 17; TEMP 36.5; O2SAT 100
[2021-12-13 05:29] LABS: Basophils Absolute Auto 0.1 K/mm3 (0.0-0.1); Basophils Percent Auto 0.5 % (0.2-1.2); Eosinophils Absolute Auto 0.1 K/mm3 (0-0.3); Eosinophils Percent Auto 1.1 % (0-4.4); Hemoglobin 9.5 g/dL (12.0-15.0); Immature Granulocyte Absolute 0.03 K/mm3 (0.00-0.031); Immature Granulocyte Percent A 0.3 % (0-0.5); Lymphocytes Absolute Auto 1.45 K/mm3 (0.9-3.2); Lymphocytes Percent Auto 15.7 % (18.3-44.2); Mean Corpuscular HGB Conc 30.6 g/dl (32-36); Mean Corpuscular Hemoglobin 27.5 pg (26-34); Mean Corpuscular Volume 89.9 fl (80-100); Monocytes Absolute Auto 0.7 K/mm3 (0.1-0.6); Monocytes Percent Auto 7.3 % (2.6-8.5); Neutrophils Absolute Auto 6.9 K/mm3 (1.3-6.7); Neutrophils Percent Auto 75.1 % (45.5-73.1); Platelet Count Result 264 k/mm3 (150-375); Red Blood Count 3.45 M/mm3 (4.2-5.4); Red Cell Distribution Width 13.2 % (11.5-14.5); White Blood Count 9.2 K/mm3 (4.5-10.0)
[2021-12-13] MEDS: BELLADONNA ALK/PHENOB ELIX 10 ML, MAG HYDROX/ALUMINUM HYD/SIMETH 30 ML, LIDOCAINE HCL 2... PO (05:36)
[2021-12-13] MEDS: NICOTINE (*PBKC) 14 MG PATCH 1 PATCH TRANSDERM ×2 (05:37→08:17)
[2021-12-13 05:41] LABS: Anion Gap 6 mmol/L (8-16); Blood Urea Nitrogen 3 mg/dL (7-17); Calcium 7.7 mg/dL (8.4-10.2); Carbon Dioxide 24 mmol/L (22-30); Chloride 108 mmol/L (98-107); Estimated CRCL calculation 112 ml/min; Estimated Glomerular Filt Rate > 60; Glucose 93 mg/dL (65-110); Magnesium 2.4 mg/dL (1.6-2.3); Potassium 3.5 mmol/L (3.4-5.0); Sodium 138 mmol/L (137-145)
[2021-12-13 06:09] VITALS: BP 99/56; PULSE 96; RESP 16; TEMP 37.2; O2SAT 95
[2021-12-13] MEDS: ACETAMINOPHEN 500 MG TABLET 1000 MG PO (08:15)
[2021-12-13 08:17] VITALS: RESP 16; O2SAT 95
[2021-12-13] MEDS: FAMOTIDINE 20 MG TABLET PO ×2 (08:17→20:48)
[2021-12-13] MEDS: MAGNESIUM OXIDE 400 MG TABLET PO (08:17)
[2021-12-13 09:39] VITALS: BMI 17.6
--- NOTE | 2021-12-13 10:56 | PCNSR ---
On 12/13/21, the student,Pauline White, provided care and completed [facility] documentation on this patient. I have reviewed the student's documentation and agree with the findings.
--- NOTE | 2021-12-13 13:06 | PHAR ---
Home medication Cristinaoom seen in pharmacy and returned to 2med unit
[2021-12-13 14:00] VITALS: BP 100/56; PULSE 87; RESP 16; TEMP 36.8; O2SAT 100
--- NOTE | 2021-12-13 16:20 | PM.PNGS ---
Progress Note: A&P Assessment and Plan (1) Pneumonia: Qualifiers: Aspiration pneumonia type: unspecified Code(s): J18.9 - Pneumonia, unspecified organism Status: Acute Assessment and Plan: Chest x-ray ordered this morning and did show bilateral lower lobe pneumonia. Patient on room air with productive cough. Will order sputum cultures and consult the Hospitalist. Continue IV Zosyn, IS use, and increase activity as tolerated. The pain she is complaining of in her low midsternal area radiating across her ribs sounds pleuritic in nature. Hospitalist consulted, appreciate their recommendations. (2) Acute appendicitis with localized peritonitis: Code(s): K35.30 - Acute appendicitis with localized peritonitis, without perforation or gangrene Status: Acute Assessment and Plan: Doing well post-operatively. Continue to increase activity as tolerated. Incisions look good and healing as expected. Continue IS use. (3) Fever postop: Code(s): R50.82 - Postprocedural fever Status: Acute Assessment and Plan: T-max of 103? F in the ER and afebrile since. Repeat CT scan of the abdomen and pelvis showed no other findings that would explain the fever. Likely related to pneumonia. See plan above. (4) Vaping nicotine dependence, non-tobacco product: Code(s): F17.200 - Nicotine dependence, unspecified, uncomplicated Status: Acute Assessment and Plan: Continue nicotine patch. Again encouraged cessation. (5) Hemorrhagic cyst of left ovary: Code(s): N83.202 - Unspecified ovarian cyst, left side Status: Acute Plan I have discussed the patient's case and plan of care with Dr. Claudio. Subjective Subjective Date/Time Seen: 12/13/21 14:20 Post Op day: 2 (Laparoscopic appendectomy) Patient reports: feels better, tolerating a regular diet, voiding w/o difficulty, flatus and afebrile Interval history: This is a 21-year-old female who underwent a laparoscopic appendectomy by Dr. Claudio on 12/11/2021. She was discharged the same day. She returned back to the ER yesterday with abdominal pain, fever, and malaise. She did have a temperature of 103? F. Repeat CT scan of the abdomen and pelvis showed postoperative changes, but no acute intra-abdominal findings. Also noted was some atelectasis versus pneumonia in bilateral lower lobes. She was admitted for further management and monitoring. Chart reviewed. Patient seen and examined. She received a GI cocktail early this morning for midsternal burning and chest pain. She felt this did help some. She reports having some pain in her lower midsternal chest and across the lower ribs that radiates to her mid back. This pain is during deep inspiration. No pressure or constant chest pain. No shortness of breath. She does report a productive cough with green colored sputum. She is currently on room air. She has walked in the room, but not in the hallways. She had some nausea this morning which has resolved with Zofran. No vomiting. Tolerating full liquids. Review of Systems Review of Systems: All systems reviewed & are unremarkable except as noted in HPI and below Exam Const: General: comfortable, no acute distress and awake Orientation/consciousness: patient oriented x3 Resp: Effort & Inspection: normal respiratory effort Auscultation: crackles on the right in the lower lung burr and diminished lung sounds bilateral in the lower lung burr Cardio: Rate: regular rate Rhythm: regular rhythm GI: Inspection: non-distended and incision (Abdominal incisions clean and dry, glue intact.) GI Palp: Yes Soft to palpation and Yes Tenderness to palpation present (GI) (incisional) Auscultation: normal bowel sounds Skin: General skin exam: normal color Neuro: General: patient oriented x3, moves all extremities and no focal motor deficits Speech: No Abnormal speech present Extrem: General: no clubbing, c
--- NOTE | 2021-12-13 18:45 | WPDCN ---
Assessment and Plan Assessment and plan (1) Postoperative fever: Code(s): R50.82 - Postprocedural fever Status: Acute Assessment and Plan: T-max of 103.1? F on arrival to the emergency department on 12/12/2021. Suspected to be related to pneumonia as CT scan of the abdomen and pelvis showed no other findings to explain the fever. (2) Pneumonia: Qualifiers: Aspiration pneumonia type: unspecified Code(s): J18.9 - Pneumonia, unspecified organism Status: Acute Assessment and Plan: She was started on Zosyn per the surgery service and we will continue with that for possible aspiration pneumonia. Sputum to be attempted for culture. Check urinary antigens as well. (3) Acute appendicitis with localized peritonitis: Code(s): K35.30 - Acute appendicitis with localized peritonitis, without perforation or gangrene Status: Acute Assessment and Plan: Postoperative day 2 status post laparoscopic appendectomy. (4) Left ovarian cyst: Code(s): N83.202 - Unspecified ovarian cyst, left side Status: Acute Assessment and Plan: Noted on CT scan and during surgery on the . Dr. Claudio felt was likely a large hemorrhagic cyst. No acute issues. Additional Plan Thank you for allowing us to participate in this patient's care. Please do not hesitate to contact us with any questions. Supervising physician for this medical consultation is Dr. Pipo Ackerman. HPI Data of Consult Date/Time: 12/13/21 18:45 Requesting Physician: Jeffery Claudio MD Consult Narrative Reason for consult: Pneumonia. Narrative: This is a pleasant 21-year-old female without significant medical history who was admitted to the surgical service early yesterday morning after presenting to the ER with abdominal pain, fever, and generalized malaise status post appendectomy less than 24 hours prior on 12/11/[address] Claudio. She was able to be discharged home the evening after surgery and she slept okay that 1st night however she was wakened at about 03:00 yesterday morning with the urge to urinate which time she developed severe abdominal pain when she stood up to go to the bathroom. She was also feeling very lightheaded at that time and she developed nausea and she reports having 1 episode of emesis which was essentially the Gatorade that she had drank the night before. Due to ongoing pain and fever of 103? F, she came back in for evaluation where a CT of the abdomen and pelvis showed mild postoperative pneumoperitoneum and right lower quadrant pelvic fluid post appendectomy. CT also showed bilateral lower lung infiltrates concerning for aspiration pneumonitis or pneumonia and she was admitted for further care. With further questioning she does not think that she aspirated with her emesis yesterday but she does endorse developing a cough and slight shortness of breath not long thereafter. Her cough is mostly productive of clear phlegm though on occasion she has noted it to be thick green/yellow. She had COVID 1 month ago though she had no imaging done at that time. She denies sick contacts. She has some mild pleuritic pain in the lower ribs bilaterally though she denies overt chest pain. She has perhaps mild shortness of breath but nothing significant. No current nausea or, vomiting, or diarrhea. She continues to have mild abdominal discomfort, mainly with movement. She has not had a good bowel movement since surgery and she feels that her abdomen is perhaps a bit distended. Review of Systems Review of Systems: Twelve systems were reviewed and are negative except for as per HPI. [facility] Past Medical History Medical History (Updated 12/14/21 @ 00:12 by Cydney Hicks PA-C) Anxiety Depression Vaping nicotine dependence, non-tobacco product Surgical History Surgical History (Updated 12/14/21 @ 00:09 by Cydney Hicks PA-C) History of appendectomy (12/11/21) History of t
[2021-12-13 19:23] VITALS: BP 102/60; PULSE 95; RESP 16; TEMP 36.4; O2SAT 100
[2021-12-13] MEDS: SERTRALINE HCL 50 MG TABLET PO (20:48)
[2021-12-14] MEDS: ACETAMINOPHEN 500 MG TABLET 1000 MG PO (00:23)
[2021-12-14] MEDS: ONDANSETRON INJ 4 MG/2 ML VIAL IV PUSH (00:35)
[2021-12-14 04:32] VITALS: BP 94/62; PULSE 85; RESP 16; TEMP 36.7; O2SAT 100
[2021-12-14 05:59] LABS: Basophils Percent Auto 0.3 % (0.2-1.2); Eosinophils Absolute Auto 0.1 K/mm3 (0-0.3); Eosinophils Percent Auto 1.7 % (0-4.4); Hematocrit 24.5 % (37.0-47.0); Hemoglobin 7.9 g/dL (12.0-15.0); Immature Granulocyte Absolute 0.04 K/mm3 (0.00-0.031); Immature Granulocyte Percent A 0.6 % (0-0.5); Lymphocytes Percent Auto 21.4 % (18.3-44.2); Mean Corpuscular HGB Conc 32.2 g/dl (32-36); Mean Corpuscular Hemoglobin 27.7 pg (26-34); Mean Platelet Volume 10.5 fl (7.4-10.4); Monocytes Absolute Auto 0.6 K/mm3 (0.1-0.6); Monocytes Percent Auto 8.6 % (2.6-8.5); Neutrophils Absolute Auto 4.7 K/mm3 (1.3-6.7); Neutrophils Percent Auto 67.4 % (45.5-73.1); Platelet Count Result 200 k/mm3 (150-375); Red Blood Count 2.85 M/mm3 (4.2-5.4)
[2021-12-14 06:10] LABS: Alanine Aminotransferase 10 U/L (6-35); Albumin Level 2.7 g/dL (3.5-5.1); Alkaline Phosphatase 70 U/L (38-126); Anion Gap 5 mmol/L (8-16); Aspartate Amino Transferase 34 U/L (14-36); Bilirubin,Total 0.3 mg/dL (0.2-1.3); Blood Urea Nitrogen 5 mg/dL (7-17); Calcium 7.5 mg/dL (8.4-10.2); Carbon Dioxide 27 mmol/L (22-30); Chloride 105 mmol/L (98-107); Estimated CRCL calculation 113 ml/min; Estimated Glomerular Filt Rate > 60; Glucose 92 mg/dL (65-110); Lactate Dehydrogenase 293 U/L (313-618); Potassium 3.4 mmol/L (3.4-5.0); Sodium 137 mmol/L (137-145)
[2021-12-14 06:36] LABS: Procalcitonin 6.1 ng/mL
[2021-12-14] MEDS: FAMOTIDINE 20 MG TABLET PO ×2 (08:10→20:49)
[2021-12-14] MEDS: NICOTINE (*PBKC) 14 MG PATCH 1 PATCH TRANSDERM (08:10)
[2021-12-14] MEDS: MAGNESIUM OXIDE 400 MG TABLET PO (08:10)
--- NOTE | 2021-12-14 13:31 | PM.IMPN ---
Progress Note: A&P Assessment and Plan (1) Postoperative fever: Code(s): R50.82 - Postprocedural fever Status: Acute Assessment and Plan: No fever Overnite. Again this is likely related to pneumonia. Continue IV antibiotics (2) Pneumonia: Qualifiers: Aspiration pneumonia type: unspecified Code(s): J18.9 - Pneumonia, unspecified organism Status: Acute Assessment and Plan: She was started on Zosyn per the surgery service and we will continue with that for possible aspiration pneumonia. Sputum to be attempted for culture. Check urinary antigens as well. (3) Acute appendicitis with localized peritonitis: Code(s): K35.30 - Acute appendicitis with localized peritonitis, without perforation or gangrene Status: Acute Assessment and Plan: Postoperative day 2 status post laparoscopic appendectomy. (4) Left ovarian cyst: Code(s): N83.202 - Unspecified ovarian cyst, left side Status: Acute Assessment and Plan: Noted on CT scan and during surgery on the . Dr. Claudio felt was likely a large hemorrhagic cyst. No acute issues. Additional Plan Thank you for allowing us to participate in this patient's care. Please do not hesitate to contact us with any questions. Supervising physician for this medical consultation is Dr. Pipo Ackerman. Subjective Date/time seen: 12/14/21 13:31 No new complaints. No fever Overnite. Exam Narrative: General: Well-developed, thin female sitting up in bed in no distress. Weight: 40.1 kg. BMI: 17.6. HEENT: PERRL, EOMI. Conjunctivae anicteric. Tacky mucous membranes. Neck: Supple. No adenopathy. Respiratory: Respirations are nonlabored and she is speaking in full sentences. Faint rales bilaterally, left greater than right. Cardiovascular: Regular rate and rhythm with S1-S2. Gastrointestinal: Abdomen is soft. She is slightly tender to palpation in the periumbilical region. Laparoscopic incisions are well approximated and glued. Abdomen is slightly distended. Positive bowel sounds. Skin: Warm and dry. No rash or lesions on limited exam. Extremities: No cyanosis, clubbing, or edema. Radial and pedal pulses intact. Neurological: Alert. Cranial nerves 2-12 grossly intact. No gross focal deficits to casual conversation. Psychiatric: Pleasant and cooperative with normal mood and affect. Judgment and insight intact. Objective Data Vital Signs Vital Signs: Vital Signs - 24 hr 12/13/21 14:00 12/13/21 19:23 12/14/21 04:32 Temperature 98.2 F 97.6 F 98.1 F Pulse Rate 87 95 85 Respiratory Rate 16 16 16 Blood Pressure 100/56 L 102/60 94/62 L Pulse Oximetry 100 100 100 Oxygen Delivery 12/14/21 08:00 Temperature Pulse Rate Respiratory Rate Blood Pressure Pulse Oximetry Oxygen Delivery Room Air Intake/Output Intake/Output: Intake & Output 12/11/21 12/12/21 12/13/21 12/14/21 23:59 23:59 23:59 23:59 Intake Total 690 2130 800 Output Total 1150 900 300 Balance -460 1230 500 Meds/Results Medications: Active Medications Generic Name Dose Route Start Last Admin Trade Name Freq PRN Reason Stop Dose Admin Acetaminophen 1,000 mg 12/12/21 16:30 12/14/21 00:23 Acetaminophen 500 Mg Tablet PO 1,000 mg Q6H PRN Administration Mild Pain (1-3) or Fever Hydrocodone Bitart/Acetaminophen 1 tab 12/12/21 16:30 Hydrocodone/Acetaminophen (*Crx) 5-325 Mg Tablet PO Q6H PRN Pain Rated 4-6 Hydrocodone Bitart/Acetaminophen 1 tab 12/12/21 16:32 12/12/21 20:18 Hydrocodone/Acetaminophen (*Crx) 7.5-325 Mg Tablet PO 1 tab Q6H PRN Administration Pain Rated 7-10 Hydrocodone Bitart/Acetaminophen 1 tab 12/13/21 05:54 Hydrocodone/Acetaminophen (*Crx) 5-325 Mg Tablet PO Q6H PRN Pain Rated 4-6 Bisacodyl 10 mg 12/12/21 16:30 Bisacodyl 10 Mg Suppository RECTAL QAM PRN Constipation Famotidine 20 mg 12/12/21 21:
--- NOTE | 2021-12-14 14:44 | PM.PNGS ---
Progress Note: A&P Assessment and Plan (1) Pneumonia: Qualifiers: Aspiration pneumonia type: unspecified Code(s): J18.9 - Pneumonia, unspecified organism Status: Acute Assessment and Plan: Continue antibiotics per hospitalist, currently on IV Zosyn. Sputum culture obtained. Also had urinary antigens ordered. Appreciate hospitalist's help. (2) Acute appendicitis with localized peritonitis: Code(s): K35.30 - Acute appendicitis with localized peritonitis, without perforation or gangrene Status: Acute Assessment and Plan: Doing well post-operatively. Continue to increase activity as tolerated. Incisions look good and healing as expected. Continue IS use. (3) Fever postop: Code(s): R50.82 - Postprocedural fever Status: Acute Assessment and Plan: T-max of 103? F in the ER and afebrile since. Repeat CT scan of the abdomen and pelvis showed no other findings that would explain the fever. Likely related to pneumonia. See plan above. (4) Vaping nicotine dependence, non-tobacco product: Code(s): F17.200 - Nicotine dependence, unspecified, uncomplicated Status: Acute Assessment and Plan: Continue nicotine patch. Again encouraged cessation. (5) Hemorrhagic cyst of left ovary: Code(s): N83.202 - Unspecified ovarian cyst, left side Status: Acute Plan I have discussed the patient's case and plan of care with Dr. Claudio. Subjective Subjective Date/Time Seen: 12/14/21 14:44 Post Op day: 3 (Laparoscopic appendectomy) Patient reports: no new complaints, tolerating liquids well, voiding w/o difficulty, flatus and afebrile Interval history: Patient seen and examined. Reports feeling much better today. She is still having slight shortness of breath with activity, but this continues to improve. She is still stable on room air. She gave a sputum sample to the nurse last night. Her incisional pain is well controlled. She is tolerating activity. Review of Systems Review of Systems: All systems reviewed & are unremarkable except as noted in HPI and below Exam Const: General: comfortable, no acute distress and awake Orientation/consciousness: patient oriented x3 Resp: Effort & Inspection: normal respiratory effort Auscultation: clear to auscultation bilaterally Cardio: Rate: regular rate Rhythm: regular rhythm GI: Inspection: non-distended and incision (Abdominal incisions clean and dry, glue intact.) GI Palp: Yes Soft to palpation, Yes Tenderness to palpation present (GI) (Incisional) and No Guarding due to palpation present (GI) Auscultation: normal bowel sounds Neuro: General: moves all extremities and no focal motor deficits Extrem: General: no calf tenderness and no edema Psych: Mental Status: mental status grossly normal Judgement: Good judgement present (Psych) Objective Data Vital Signs Vital Signs: Vital Signs - 24 hr 12/13/21 19:23 12/14/21 04:32 12/14/21 08:00 Temperature 97.6 F 98.1 F Pulse Rate 95 85 Respiratory Rate 16 16 Blood Pressure 102/60 94/62 L Pulse Oximetry 100 100 Oxygen Delivery Room Air Intake/Output Intake/Output: Intake & Output 12/11/21 12/12/21 12/13/21 12/14/21 23:59 23:59 23:59 23:59 Intake Total 690 2130 800 Output Total 1150 900 300 Balance -460 1230 500 Meds/Results Medications: Active Medications Generic Name Dose Route Start Last Admin Trade Name Freq PRN Reason Stop Dose Admin Acetaminophen 1,000 mg 12/12/21 16:30 12/14/21 00:23 Acetaminophen 500 Mg Tablet PO 1,000 mg Q6H PRN Administration Mild Pain (1-3) or Fever Hydrocodone Bitart/Acetaminophen 1 tab 12/12/21 16:30 Hydrocodone/Acetaminophen (*Crx) 5-325 Mg Tablet PO Q6H PRN Pain Rated 4-6 Hydrocodone Bitart/Acetaminophen 1 tab 12/12/21 16:32 12/12/21 20:18 Hydrocodone/Acetaminophen (*Crx) 7.5-325 Mg Tablet PO 1 tab Q6H PRN Administrat
[2021-12-14 14:50] VITALS: BP 109/60; PULSE 92; RESP 14; TEMP 37.1; O2SAT 99
[2021-12-14 15:18] VITALS: PULSE 81; O2SAT 98
[2021-12-14 17:23] LABS: Hematocrit 27.6 % (37.0-47.0); Hemoglobin 8.5 g/dL (12.0-15.0)
[2021-12-14] MEDS: SERTRALINE HCL 50 MG TABLET PO (20:49)
[2021-12-14 21:11] VITALS: BP 94/54; PULSE 79; RESP 16; TEMP 36.9; O2SAT 100
[2021-12-15 06:00] VITALS: BP 97/58; PULSE 82; RESP 18; TEMP 37; O2SAT 100
[2021-12-15 06:04] LABS: Hematocrit 26.6 % (37.0-47.0); Hemoglobin 8.2 g/dL (12.0-15.0); Mean Corpuscular HGB Conc 30.8 g/dl (32-36); Mean Corpuscular Hemoglobin 26.7 pg (26-34); Mean Corpuscular Volume 86.6 fl (80-100); Mean Platelet Volume 10.2 fl (7.4-10.4); Platelet Count Result 249 k/mm3 (150-375); Red Blood Count 3.07 M/mm3 (4.2-5.4); Red Cell Distribution Width 12.8 % (11.5-14.5); White Blood Count 5.8 K/mm3 (4.5-10.0)
[2021-12-15 09:18] VITALS: RESP 18; O2SAT 100
[2021-12-15] MEDS: FAMOTIDINE 20 MG TABLET PO ×2 (09:18→21:27)
[2021-12-15] MEDS: NICOTINE (*PBKC) 14 MG PATCH 1 PATCH TRANSDERM (09:18)
[2021-12-15] MEDS: MAGNESIUM OXIDE 400 MG TABLET PO (09:18)
[2021-12-15 10:41] LABS: SARS-CoV-2 RNA PCR Negative
[2021-12-15] MEDS: polyethylene glycoL 3350 17 GM POWD.PACK PO (10:47)
[2021-12-15] MEDS: ACETAMINOPHEN 500 MG TABLET 1000 MG PO (11:42)
[2021-12-15] MEDS: cefTRIAXone 2 GM in SODIUM CHLORIDE 0.9% IV 100 ML 200 ML IVPB (11:43)
--- NOTE | 2021-12-15 11:46 | PM.IMPN ---
Progress Note: A&P Assessment and Plan (1) Postoperative fever: Code(s): R50.82 - Postprocedural fever Status: Acute (2) Pneumonia: Qualifiers: Aspiration pneumonia type: unspecified Code(s): J18.9 - Pneumonia, unspecified organism Status: Acute (3) Abdominal pain: Qualifiers: Abdominal location: right lower quadrant Qualified Code(s): R10.31 - Right lower quadrant pain Code(s): R10.9 - Unspecified abdominal pain Status: Acute (4) Constipation: Code(s): K59.00 - Constipation, unspecified Status: Acute Additional Plan 21-year-old female without significant medical history who was admitted to the surgical service after presenting to the ER with abdominal pain, fever, and generalized malaise status post appendectomy less than 24 hours prior on 12/11/2021 1)Fever: 2/2 PNA Currently on RA Sputum culture growing GPC Add Vancomycin De escalate Zosyn to ceftriaxone for now No resp distress at the moment 2)S/p Appendectomy: Post op care as per primary team 3)Constipation:Add miralax and Senna S 4)PT/OT 5)Code:Full 6)DVT ppx:SCD 7)Dispo:pending improvement Time Spent With Patient Time with patient: 15 - 25 minutes Subjective Date/time seen: 12/15/21 11:46 Interval history: no acute events overnight, patient feeling better, little SOB, no cough c/o constipation Review of Systems Review of Systems: All systems reviewed & are unremarkable except as noted in HPI and below Constitutional: Constitutional: Reports no additional constitutional complaints Eyes: Eyes: Reports no additional eye complaints ENT: Reports system reviewed and no additional complaints, except as documented Cardiovascular: Cardiovascular: Reports no additional cardiovascular complaints Respiratory: Respiratory: Reports dyspnea on exertion Gastrointestinal: Gastrointestinal: Reports constipation Musculoskeletal: Musculoskeletal: Reports no additional musculoskeletal complaints Neurologic: Reports system reviewed and no additional complaints, except as documented Exam Const: General: comfortable and no acute distress HENMT: Mouth: Yes moist mucous membranes Eyes: Sclera: sclerae normal Pupils: Equal, round and reactive pupils present Neck: Neck: supple Resp: Effort & Inspection: normal respiratory effort Auscultation: clear to auscultation bilaterally Cardio: Rate: regular rate Rhythm: regular rhythm GI: GI Palp: Yes Soft to palpation Auscultation: normal bowel sounds Other: well healing recent surgery incision Skin: General skin exam: normal color Neuro: Speech: normal speech Extrem: General: normal to inspection Objective Data Vital Signs Vital Signs: Vital Signs - 24 hr 12/14/21 14:50 12/14/21 15:18 12/14/21 21:11 Temperature 98.7 F 98.5 F Pulse Rate 92 81 79 Respiratory Rate 14 16 Blood Pressure 109/60 94/54 L Pulse Oximetry 99 98 100 Oxygen Delivery Room Air 12/15/21 06:00 12/15/21 09:18 Temperature 98.6 F Pulse Rate 82 Respiratory Rate 18 18 Blood Pressure 97/58 L Pulse Oximetry 100 100 Oxygen Delivery Room Air Intake/Output Intake/Output: Intake & Output 12/12/21 12/13/21 12/14/21 12/15/21 23:59 23:59 23:59 23:59 Intake Total 690 2130 1320 420 Output Total 7923 271 1581 Balance -460 1230 70 420 Meds/Results Medications: Active Medications Generic Name Dose Route Start Last Admin Trade Name Freq PRN Reason Stop Dose Admin Acetaminophen 1,000 mg 12/12/21 16:30 12/15/21 11:42 Acetaminophen 500 Mg Tablet PO 1,000 mg Q6H PRN Administration Mild Pain (1-3) or Fever Hydrocodone Bitart/Acetaminophen 1 tab 12/12/21 16:30 Hydrocodone/Acetaminophen (*Crx) 5-325 Mg Tablet PO Q6H PRN Pain Rated 4-6 Hydrocodone Bitart/Acetaminophen 1 tab 12/12/21 16:32 12/12/21 20:18 Hydrocodone/Acetaminophen (*Crx) 7.5-325 Mg Tablet PO 1 tab Q6H PRN Admi
--- NOTE | 2021-12-15 12:03 | PM.PNGS ---
Progress Note: A&P Assessment and Plan (1) Pneumonia: Qualifiers: Aspiration pneumonia type: unspecified Code(s): J18.9 - Pneumonia, unspecified organism Status: Acute Assessment and Plan: Continue antibiotics per hospitalist, switched today to IV Rocephin/Vancomycin. Awaiting sputum culture and urine results. Patient clinically improving. (2) Acute appendicitis with localized peritonitis: Code(s): K35.30 - Acute appendicitis with localized peritonitis, without perforation or gangrene Status: Acute Assessment and Plan: Doing well post-operatively. Continue to increase activity as tolerated. Incisions look good and healing as expected. Continue IS use. (3) Fever postop: Code(s): R50.82 - Postprocedural fever Status: Acute Assessment and Plan: Resolved. Likely related to pneumonia. See plan above. (4) Vaping nicotine dependence, non-tobacco product: Code(s): F17.200 - Nicotine dependence, unspecified, uncomplicated Status: Acute Assessment and Plan: Continue nicotine patch. Again encouraged cessation. (5) Hemorrhagic cyst of left ovary: Code(s): N83.202 - Unspecified ovarian cyst, left side Status: Acute Plan I have discussed the patient's case and plan of care with Dr. Claudio. Subjective Subjective Date/Time Seen: 12/15/21 12:03 Patient reports: no new complaints, feels better, tolerating a regular diet and afebrile (since 12/12) Interval history: Patient seen and examined. Reports feeling better every day. Reports her breathing is better today and her cough seems to have improved. Less sputum. She denies any shortness of breath at this time. She is tolerating activity well. Review of Systems Review of Systems: All systems reviewed & are unremarkable except as noted in HPI and below Exam Const: General: comfortable, no acute distress and awake Orientation/consciousness: patient oriented x3 GI: Inspection: non-distended and incision (Abdominal incisions clean and dry, glue intact.) GI Palp: Yes Soft to palpation, Yes Tenderness to palpation present (GI) (incisional) and No Guarding due to palpation present (GI) Auscultation: normal bowel sounds Skin: General skin exam: normal color Neuro: General: moves all extremities and no focal motor deficits Extrem: General: no calf tenderness and no edema Psych: Mental Status: mental status grossly normal Insight: Good insight present (Psych) Objective Data Vital Signs Vital Signs: Vital Signs - 24 hr 12/14/21 14:50 12/14/21 15:18 12/14/21 21:11 Temperature 98.7 F 98.5 F Pulse Rate 92 81 79 Respiratory Rate 14 16 Blood Pressure 109/60 94/54 L Pulse Oximetry 99 98 100 Oxygen Delivery Room Air 12/15/21 06:00 12/15/21 09:18 Temperature 98.6 F Pulse Rate 82 Respiratory Rate 18 18 Blood Pressure 97/58 L Pulse Oximetry 100 100 Oxygen Delivery Room Air Intake/Output Intake/Output: Intake & Output 12/12/21 12/13/21 12/14/21 12/15/21 23:59 23:59 23:59 23:59 Intake Total 690 2130 1320 780 Output Total 9712 912 0889 400 Balance -460 1230 70 380 Meds/Results Medications: Active Medications Generic Name Dose Route Start Last Admin Trade Name Freq PRN Reason Stop Dose Admin Acetaminophen 1,000 mg 12/12/21 16:30 12/15/21 11:42 Acetaminophen 500 Mg Tablet PO 1,000 mg Q6H PRN Administration Mild Pain (1-3) or Fever Hydrocodone Bitart/Acetaminophen 1 tab 12/12/21 16:30 Hydrocodone/Acetaminophen (*Crx) 5-325 Mg Tablet PO Q6H PRN Pain Rated 4-6 Hydrocodone Bitart/Acetaminophen 1 tab 12/12/21 16:32 12/12/21 20:18 Hydrocodone/Acetaminophen (*Crx) 7.5-325 Mg Tablet PO 1 tab Q6H PRN Administration Pain Rated 7-10 Hydrocodone Bitart/Acetaminophen 1 tab 12/13/21 05:54 Hydrocodone/Acetaminophen (*Crx) 5-325 Mg Tablet PO Q6H PRN Pain Rated 4-6 Bisacodyl 10 mg 0
[2021-12-15 14:08] VITALS: BP 102/58; PULSE 105; RESP 22; TEMP 36.2; O2SAT 100
[2021-12-15 20:14] VITALS: BP 101/60; PULSE 76; RESP 20; TEMP 36.6; O2SAT 98
[2021-12-15] MEDS: SERTRALINE HCL 50 MG TABLET PO (21:27)
[2021-12-15] MEDS: SENNA/DOCUSATE SODIUM TABLET 1 TAB PO (21:27)
[2021-12-16 05:00] VITALS: BP 106/59; PULSE 71; RESP 21; TEMP 36.1; O2SAT 100
[2021-12-16 05:31] LABS: Basophils Percent Auto 0.5 % (0.2-1.2); Eosinophils Absolute Auto 0.2 K/mm3 (0-0.3); Hematocrit 28.8 % (37.0-47.0); Hemoglobin 9.4 g/dL (12.0-15.0); Immature Granulocyte Absolute 0.04 K/mm3 (0.00-0.031); Immature Granulocyte Percent A 0.7 % (0-0.5); Lymphocytes Absolute Auto 1.76 K/mm3 (0.9-3.2); Lymphocytes Percent Auto 31.2 % (18.3-44.2); Mean Corpuscular HGB Conc 32.6 g/dl (32-36); Mean Corpuscular Hemoglobin 27.5 pg (26-34); Mean Corpuscular Volume 84.2 fl (80-100); Mean Platelet Volume 10.1 fl (7.4-10.4); Monocytes Absolute Auto 0.5 K/mm3 (0.1-0.6); Neutrophils Absolute Auto 3.2 K/mm3 (1.3-6.7); Neutrophils Percent Auto 56.6 % (45.5-73.1); Platelet Count Result 311 k/mm3 (150-375); Red Blood Count 3.42 M/mm3 (4.2-5.4); Red Cell Distribution Width 12.7 % (11.5-14.5); White Blood Count 5.6 K/mm3 (4.5-10.0)
[2021-12-16 05:38] LABS: Anion Gap 5 mmol/L (8-16); Blood Urea Nitrogen 6 mg/dL (7-17); Calcium 8.5 mg/dL (8.4-10.2); Carbon Dioxide 25 mmol/L (22-30); Chloride 107 mmol/L (98-107); Estimated CRCL calculation 109 ml/min; Estimated Glomerular Filt Rate > 60; Glucose 90 mg/dL (65-110); Potassium 3.9 mmol/L (3.4-5.0); Sodium 137 mmol/L (137-145)
[2021-12-16 08:00] VITALS: PULSE 71; RESP 21; O2SAT 100
[2021-12-16] MEDS: cefTRIAXone 2 GM in SODIUM CHLORIDE 0.9% IV 100 ML IVPB (08:29)
[2021-12-16] MEDS: FAMOTIDINE 20 MG TABLET PO (08:29)
[2021-12-16] MEDS: NICOTINE (*PBKC) 14 MG PATCH 1 PATCH TRANSDERM (08:29)
[2021-12-16] MEDS: MAGNESIUM OXIDE 400 MG TABLET PO (08:29)
--- NOTE | 2021-12-16 11:37 | PM.IMPN ---
Progress Note: A&P Assessment and Plan (1) Abdominal pain: Qualifiers: Abdominal location: right lower quadrant Qualified Code(s): R10.31 - Right lower quadrant pain Code(s): R10.9 - Unspecified abdominal pain Status: Acute (2) Constipation: Code(s): K59.00 - Constipation, unspecified Status: Acute Plan 21-year-old female without significant medical history who was admitted to the surgical service after presenting to the ER with abdominal pain, fever, and generalized malaise status post appendectomy less than 24 hours prior on 12/11/2021 1)Fever: 2/2 PNA Currently on RA, no fever Sputum culture finalized with lower resp tract taryn d/w Gen Surgery, will plan to discharge her home on augmentin for another 5 days No resp distress at the moment 2)S/p Appendectomy: Post op care as per primary team 3)Constipation:c/w miralax and Senna S 4)PT/OT 5)Code:Full 6)DVT ppx:SCD 7)Dispo:anticipate discharge today by primary team. Will sign off. Time Spent With Patient Time with patient: less than 15 minutes Subjective Date/time seen: 12/16/21 11:37 Interval history: no acute events overnight, patient feeling better, no SOB, no cough Review of Systems Review of Systems: All systems reviewed & are unremarkable except as noted in HPI and below Constitutional: Constitutional: Reports no additional constitutional complaints Eyes: Eyes: Reports no additional eye complaints ENT: Reports system reviewed and no additional complaints, except as documented Cardiovascular: Cardiovascular: Reports no additional cardiovascular complaints and Reports dyspnea on exertion Respiratory: Respiratory: Reports dyspnea on exertion Gastrointestinal: Gastrointestinal: Reports constipation Musculoskeletal: Musculoskeletal: Reports no additional musculoskeletal complaints Neurologic: Reports system reviewed and no additional complaints, except as documented Exam Const: General: comfortable and no acute distress HENMT: Mouth: Yes moist mucous membranes Eyes: Sclera: sclerae normal Pupils: Equal, round and reactive pupils present Neck: Neck: supple Resp: Effort & Inspection: normal respiratory effort Auscultation: clear to auscultation bilaterally Cardio: Rate: regular rate Rhythm: regular rhythm GI: Auscultation: normal bowel sounds Other: well healing recent surgery incision Skin: General skin exam: normal color Neuro: Cranial nerves: Yes Equal, round and reactive pupils present Speech: normal speech Extrem: General: normal to inspection Objective Data Vital Signs Vital Signs: Vital Signs - 24 hr 12/15/21 14:08 12/15/21 20:14 12/15/21 20:00 Temperature 97.2 F L 97.8 F Pulse Rate 105 H 76 Respiratory Rate 22 H 20 Blood Pressure 102/58 L 101/60 Pulse Oximetry 100 98 Oxygen Delivery Room Air 12/16/21 05:00 12/16/21 08:00 Temperature 97.0 F L Pulse Rate 71 71 Respiratory Rate 21 H 21 H Blood Pressure 106/59 L Pulse Oximetry 100 100 Oxygen Delivery Room Air Intake/Output Intake/Output: Intake & Output 12/13/21 12/14/21 12/15/21 12/16/21 23:59 23:59 23:59 23:59 Intake Total 2130 1320 1760 720 Output Total 900 1250 1500 900 Balance 1230 70 260 -180 Meds/Results Medications: Active Medications Generic Name Dose Route Start Last Admin Trade Name Freq PRN Reason Stop Dose Admin Acetaminophen 1,000 mg 12/12/21 16:30 12/15/21 11:42 Acetaminophen 500 Mg Tablet PO 1,000 mg Q6H PRN Administration Mild Pain (1-3) or Fever Hydrocodone Bitart/Acetaminophen 1 tab 12/12/21 16:30 Hydrocodone/Acetaminophen (*Crx) 5-325 Mg Tablet PO Q6H PRN Pain Rated 4-6 Hydrocodone Bitart/Acetaminophen 1 tab 12/12/21 16:32 12/12/21 20:18 Hydrocodone/Acetaminophen (*Crx) 7.5-325 Mg Tablet PO 1 tab Q6H PRN Administration Pain Rated 7-10 Hydrocodone Bitart/Acetaminophen 1 tab 12/13/21 05:54 Hydrocodone/
--- NOTE | 2021-12-16 11:40 | PM.DS ---
DS: Admitting Diagnosis Discharge Date 12/16/2021 Admitting Diagnosis Pneumonia Status post laparoscopic appendectomy Fever postop Abdominal pain Vaping Hemorrhagic cyst of left ovary DS: Discharge Diagnosis Discharge Diagnosis (1) Pneumonia: Qualifiers: Aspiration pneumonia type: unspecified Code(s): J18.9 - Pneumonia, unspecified organism Status: Acute (2) Postoperative fever: Code(s): R50.82 - Postprocedural fever Status: Acute Assessment and Plan: Resolved. [place] to be secondary to pneumonia. (3) Status post laparoscopic appendectomy: Code(s): Z90.49 - Acquired absence of other specified parts of digestive tract Status: Acute Assessment and Plan: Laparoscopic appendectomy on 12/11/2021 with discharge the same day and returned to the ER the following morning for this hospitalization (4) Vaping nicotine dependence, non-tobacco product: Code(s): F17.200 - Nicotine dependence, unspecified, uncomplicated Status: Acute Assessment and Plan: Encouraged cessation. (5) Hemorrhagic cyst of left ovary: Code(s): N83.202 - Unspecified ovarian cyst, left side Status: Acute Assessment and Plan: Incidentally noted on CT. Dr. Claudio discussed this with gynecology and took a picture during surgery. Follow up as an outpatient with gynecology in a few months months. DS: Summary Hospital Course Reason for hospitalization: This is a 21-year-old female who underwent a laparoscopic appendectomy on 12/11/2021 for acute appendicitis. She initially was doing well after surgery and went home the same day. She returned back to the ER for weakness and abdominal pain the following morning. When in the ER, she was afebrile with a temperature of a 103? F. this prompted a CT scan of abdomen and pelvis that showed atelectasis versus pneumonia, inflammation in the right lower quadrant from her recent surgery, but no acute intra-abdominal findings. The patient was admitted in the setting of a postoperative fever and possible pneumonia. Hospital Course: She was admitted and started on IV Zosyn for postop pneumonia. Urinalysis checked and negative for urinary tract infection. X-ray was ordered for the following morning and showed bilateral lower lobe pneumonia. She was on room air, but complaining of slight shortness of breath and a productive cough. Sputum cultures were ordered and the hospitalist was consulted for management of the postoperative pneumonia. Incentive spirometry was ordered. Urinary antigens also ordered, which were not detected. COVID test negative on 12/15/2021. She also had some nausea on admission. Therefore, her diet was backed off to clear liquids and slowly advanced as tolerated. Prior to discharge she was tolerating a regular diet. Serial labs were followed. remained normal throughout her hospitalization. Her hemoglobin did drop to the lowest being 7.9. She was 12.1 preoperatively and dropped to 10.3 postop day 1. This trended down to 7.9. She had no signs of active bleeding. Serial labs followed and her hemoglobin trended back up to 9.4. She never required transfusion. She remained hemodynamically stable. She did not require supplemental oxygen and her respiratory symptoms started improving. She also dealt with constipation postop and was successfully treated with laxatives. Initial sputum cultures on 12/13/21 just showed growth of normal oropharyngeal taryn. Hospitalist recommended another 5 days of Augmentin. She was stable for discharge and sent with oral antibiotics. She was instructed to follow up with Dr. Claudio and her primary care provider. Time spent discussing smoking cessation with patient: more than 10 minutes Status at Discharge Functional status at discharge: independent ambulation Overall status at discharge: patient is progressing back to baseline Time Spent with Patient Time attestation: Total time s
[2021-12-18 04:02] LABS: Legionella pneumophila Ag Ur Not Detected (Not Detected)
[2021-12-19 03:07] LABS: Pneumococcal Antigen Urine Not Detected (Not Detected)
== END 2021-12-16 12:22 | disposition home or self-care (01) | DRG 205 ==
LOC: ANHED 11:00 → ANH2MED 11:48
PROVIDERS: Internal Medicine; Physician Assistant; Admitting Provider Surgery; Emergency Provider Emergency Medicine; PCP Physician Assistant; Visit Provider Nurse Practitioner Family
DX: J95.89 Other postprocedural complications and disorders of respiratory system, not elsewhere classified (principal); J18.9 Pneumonia, unspecified organism; Z90.49 Acquired absence of other specified parts of digestive tract; K59.09 Other constipation; N83.202 Unspecified ovarian cyst, left side; Z86.16 Personal history of COVID-19; Z20.822 Contact with and (suspected) exposure to COVID-19; F17.290 Nicotine dependence, other tobacco product, uncomplicated; F41.9 Anxiety disorder, unspecified; F32.A Depression, unspecified
CPT/HCPCS: 36415; 71046; 74177; 80048; 80053; 81003; 82728; 83605; 83615; 83690; 83735; 84145; 84484; 85014; 85018; 85025; 85027; 85610; 85730; 86140; 87070; 87081; 87205; 87449; 87899; 96361; 96365; 96366; 96367; 96375; 96376; 99285; A9270; C9803; G0378; J0696; J1170; J2405; J2543; J3370; J3475; J7030; Q9967; U0003; U0005

== ENCOUNTER 2024-01-01 11:57 | Emergency (ER) | payer BC, SELFPAY ==
--- NOTE | ~2024-01-01 | XR_ITS ---
XR sacrum coccyx min 2V Ordering provider: Cynthia Mckeon PA-C History: . lbp/tailbone pain x 9 days, NKI . Comparison: None. FINDINGS: BONES: No acute fracture or dislocation. JOINTS: The sacroiliac joint spaces are normal. SOFT TISSUES: Soft tissues are normal. IMPRESSION: No acute osseous abnormality sacrum and coccyx. Reviewed, dictated and finalized at location A.
--- NOTE | ~2024-01-01 | XR_ITS ---
3 VIEWS LUMBAR SPINE Ordering provider: Cynthia Mckeon PA-C History: . lbp x 9days NKI . Comparison: None. FINDINGS: VERTEBRAL BODIES:Sacralization of L5. No visible fracture or subluxation. DISK SPACES: Normal. SOFT TISSUES: Normal. IMPRESSION: No acute osseous abnormality lumbar spine. Reviewed, dictated and finalized at location A.
[2024-01-01 12:25] VITALS: BP 118/61; PULSE 70; RESP 16; TEMP 36.4; O2SAT 99
--- NOTE | 2024-01-01 13:32 | ED.BACK ---
HPI - Back Pain/Injury General Chief Complaint: Back Pain/Injury Stated Complaint: back pain Time Seen by Provider: 01/01/24 13:17 Source: patient Mode of arrival: ambulatory Limitations: no limitations History of Present Illness HPI Narrative: Patient is a 23-year-old female who presents to the ED with report of pain throughout her lower back. Patient reports having pain for the last 8-9 days, present throughout her lower back, left buttock/tailbone region. She denies any fall or injury. Reports pain is worse with movement and lifting of her right leg. Has been taking ibuprofen for the pain without much relief. Denies radiation of pain down extremities or around to abdomen. Denies numbness, weakness, bowel or bladder incontinence, dysuria, hematuria, abdominal pain. Related Data Home Medications Medication Instructions Recorded Confirmed desogestrel 0.15 mg-ethinyl 1 tablet PO HS 12/11/21 12/27/21 estradiol 0.03 mg tablet (Isibloom) sertraline 50 mg tablet 1 tablet PO HS 12/11/21 12/27/21 Allergies Allergy/AdvReac Type Severity Reaction Status Date / Time escitalopram [From Lexapro] Allergy Palpitation Verified 12/23/21 09:22 s Review of Systems Review of Systems: CONSTITUTIONAL: Denies fever, chills, or sweats. GASTROINTESTINAL: Denies abdominal pain, nausea, vomiting, or diarrhea. GENITOURINARY: Denies dysuria or hematuria. MUSCULOSKELETAL: See HPI. NEUROLOGIC: Denies headache, dizziness, numbness, or weakness. All systems reviewed & are unremarkable except as noted in HPI and below PMFSH Past Medical History Medical History Anxiety Depression Vaping nicotine dependence, non-tobacco product Surgical History Surgical History History of appendectomy (12/11/21) History of tonsillectomy and adenoidectomy Family History Family History Grandparent Hypertension Sibling Asthma Sibling Asthma Social History Social History Social History: Surrogate medical decision maker: Antonio Fitzgerald, spouse. Code status: Full code. Smoking status: Current every day smoker Tobacco type: e-cigarettes/vaping Additional smoking assessment comments: One cartriage lasts one week. Alcohol intake: never Substance use: never Living arrangements: with family Spiritual care concerns: No Exam Narrative: GENERAL: Well appearing, thin, non-toxic, in no acute distress. HEAD: Normocephalic, atraumatic. RESPIRATORY: Airway patent, respirations nonlabored. Clear to auscultation bilaterally, no rales, rhonchi, wheezing. CARDIOVASCULAR: Regular rate and rhythm without murmurs, rubs, or gallops. ABDOMINAL: Soft, no tenderness throughout lower abdomen, nondistended. Normoactive BS. MUSCULOSKELETAL: Moves all extremities. No gross deformities. Minimal tenderness throughout L lower lumbosacral region, L SI region. No midline tenderness. No palpable deformities or bony step-offs. Sensation intact. SKIN: Warm, dry, normal color. NEURO: A&O X3. Speech clear. PSYCHIATRIC: Appropriate mood and affect. Normal interaction. Course Vital Signs Vital signs: Vital Signs Temperature 97.6 F 01/01/24 12:25 Pulse Rate 70 01/01/24 12:25 Respiratory Rate 16 01/01/24 12:25 Blood Pressure 118/61 01/01/24 12:25 Pulse Oximetry 99 01/01/24 12:25 Oxygen Delivery Room Air 01/01/24 12:25 Temperature 97.6 F 01/01/24 12:25 Pulse Rate 70 01/01/24 12:25 Respiratory Rate 16 01/01/24 12:25 Blood Pressure 118/61 01/01/24 12:25 Pulse Oximetry 99 01/01/24 12:25 Oxygen Delivery Room Air 01/01/24 12:25 MDM - Back Pain/Injury MDM Narrative Medical decision making narrative: Patient?s pain is positional and localized to paraspinal
[2024-01-01] MEDS: ACETAMINOPHEN 500 MG TABLET 1000 MG PO (13:48)
[2024-01-01] MEDS: KETOROLAC (*BKC) 60 MG/2 ML VIAL IM (13:48)
[2024-01-01] MEDS: CYCLOBENZAPRINE HCL 5 MG TABLET PO (13:48)
[2024-01-01 14:05] LABS: BEDSIDEPREGUCG Negative
[2024-01-01 14:10] LABS: Add Urine Microscopic? NO; Appearance Urine Clear (Clear); Bilirubin Urine Negative (Negative); Blood Urine Negative (Negative); Color Urine Yellow (Yellow); Glucose Urine UA Negative (Negative); Ketones Urine Negative (Negative); Leukocyte Esterase Ur Negative LEU/UL (Negative); Nitrate Urine Negative (Negative); Protein Urine Negative (Negative); Specific Grav Ur 1.004 (1.001-1.035); Urobilinogen Urine 0.2 mg/dL (<2.0); pH Urine 7.5 (5.0-9.0)
[2024-01-01 15:28] VITALS: BP 102/73; PULSE 75; RESP 18; TEMP 36.8; O2SAT 100
== END 2024-01-01 15:30 | disposition home or self-care (01) ==
PROVIDERS: Emergency Provider Physician Assistant
DX: S39.012A Strain of muscle, fascia and tendon of lower back, initial encounter (principal); F41.9 Anxiety disorder, unspecified; F32.A Depression, unspecified; F17.290 Nicotine dependence, other tobacco product, uncomplicated; X58.XXXA Exposure to other specified factors, initial encounter
CPT/HCPCS: 72110; 72220; 81003; 81025; 96372; 99283; A9270; J1885

== ENCOUNTER 2024-12-17 10:58 | Outpatient (CLI) | payer BC, SELFPAY ==
--- NOTE | ~2024-12-17 | MMUS_ITS ---
EXAMINATION: MM diagnostic yudith BI w carol and US breast BI limited INDICATION: 24-year old female; with history of bilateral breast pain, right periareolar pain and lef t breast pain at 12:00 location. In addition patient's provider felt a lump in the left breast at 12: 00 location. Patient cannot identified any area of pain or lump the time of this examination. COMPARISON: Baseline TECHNIQUE: Digital breast tomosynthesis CC and MLO views of the BILATERAL breast and True lateral of the BILATERAL breast were obtained with computer-aided detection to assist in interpretation of the s tudy. MAMMOGRAM FINDINGS: The breasts are extremely dense, which lowers the sensitivity of mammography. There are no suspicious masses, calcifications, architectural distortion or any other abnormality in either breast. BILATERAL BREAST ULTRASOUND FINDINGS: Targeted sonographic evaluation of the superior left breast and sonography of the right breast was pe rformed. There is no sonographic abnormality seen in either breast. No sonographic abnormality seen in the right periareolar region and in the superior aspect of the lef t breast in the general area of concern by the clinician. IMPRESSION: NO MAMMOGRAPHIC OR SONOGRAPHIC FINDING CORRELATES TO THE AREAS OF CONCERN IN BOTH BREASTS. FURTHER EV ALUATION OF PATIENT'S PALPABLE LUMP SHOULD BE BASED ON CLINICAL IMPRESSION. FOLLOW-UP CLINICALLY WARRANTED. BI-RADS 1, NEGATIVE Reviewed, dictated and finalized at location B. IMPRESSION: NO MAMMOGRAPHIC OR SONOGRAPHIC FINDING CORRELATES TO THE AREAS OF CONCERN IN [place] TH BREASTS. FURTHER EVALUATION OF PATIENT'S PALPABLE LUMP SHOULD BE BASED ON CL INICAL IMPRESSION. FOLLOW-UP CLINICALLY WARRANTED. BI-RADS 1, NEGATIVE
--- OUTSIDE RECORDS SUMMARY | 2024-12-17 11:01 | XMS_ITS | Clinical Summary ---
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 Name Role Phone Unavailable Primary Care Provider Unavailabl e Social History Tobacco Use Types Packs/Day Years Used Date Smoking Tobacco: Never Assessed Comments Unknown Sex and Gender Information Value Date Recorded Sex Assigned at Not on file Legal Sex Female 11:54 PM [employer] Gender Identity Not on file Sexual Orientation Not on file Plan of Treatment Health Maintenance Due Date Last Done Comments Hepatitis C Virus (HCV) Screening 1999 TdaP Immunization 1999 Human Papillomavirus (HPV) Immunization (1 - 3-dose series) 11/08/2014 Hepatitis B Immunization (1 of 3 - 19+ 3-dose series) 11/08/2018 Pap Smear 11/08/2020 Influenza Immunization (#1) 2024 SARS-COV-2 Immunization ( season) 2024 Respiratory Syncytial Virus (RSV) Immunization (Adult) (1 - 1-dose 75+ series) 11/08/2074 Meningococcal Immunization (ACWY) Aged Out No longer eligible based on patient's age to complete this topic Pneumococcal Immunization Combined Aged Out No longer eligible based on patient's age to complete this topic Rotavirus Immunization Aged Out No lo nger eligible based on patient's age to complete this topic
--- OUTSIDE RECORDS SUMMARY | 2024-12-17 11:01 | XMS_ITS | Data Portability ---
Author Organization [facility] Address [address] [place] [address] Assessment No assessment recorded. Plan of Treatment Reminders Order Date Submit Date Provider Last Modified By Organization Details Last Modified Time Details Appointments MED CHECK 2024 09:00A MATIAS Tolentino Not available Not available Not available Lab pap, IG + reflex HPV if ASC-U - if positive HPV run subtyping 16,18/45 add gc/ct/tri ch to pap [address] [facility] (Lab), [address] [facility], [place], [address], 11/28/2024 01:00:46 17-hydrox yprogeste kandi, ClaraN, serum [address] [facility] (Lab), [address] [place], [address], 11/28/2024 01:00:47 dhea-sulf ate, serum [address] [facility] (Lab), [address] [place], [address], 11/28/2024 01:00:43 estradiol , serum [address] [facility] (Lab), [address] [place], [address], 11/28/2024 01:00:44 FSH (follicle -stimulat ing hormone), serum [address] [facility] (Lab), [address], [place], [address], 11/28/2024 01:00:45 HbA1c (hemoglob in A1c), blood [address] [facility] (Lab), [address], [place], [address], 11/28/2024 01:00:46 lh (luteiniz ing hormone), serum [address] [facility] (Lab), [address], [place], [address], 11/28/2024 01:00:45 progester one, serum [address] [facility] (Lab), [address], [place], [address], 11/28/2024 01:00:44 prolactin , serum [address] [facility] (Lab), [address], [place], [address], 11/28/2024 01:00:44 shbg (sex hormone-b inding globulin) , serum [address] [facility] (Lab), [address], [place], [address], 11/28/2024 01:00:46 TSH, serum or plasma [address] [facility] (Lab), [address], [place], [address], 11/28/2024 01:00:45 testoster one free/test osterone total, ratio, serum [address] [facility] (Lab), [address] [place], [address], 11/28/2024 01:00:47 test, urine 2024 025 [email or web address], [address], [address], [place], [address], 11/21/2024 16:58:07 Referral None recorded. Procedures None recorded. Surgeries None recorded. Imaging US, transvagi nal [email or web address], [address], [address], [place], [address], 11/29/2024 22:15:55 US, breast, bilateral , complete 2024 025 [email or web address] [facility], [address], [place], [address], 12/14/2024 12:22:58 US, transvagi nal [email or web address], [address], [address], [place], [address], 05/23/2020 10:15:38 Medication Orders drospiren one 3 mg-ethiny l estradiol 0.03 mg tablet 2024 025 [id number], [address], [place], [place], [id number], 12/04/2024 09:31:23 Patient TargetsNo targets recorded. Patient Instructions Encounter Date Encounter Id Patient Instructions Last Modified By Organization Details Last Modified Time 05/20/2020 [id number] rpt prolactin today and f/u pending results. all questions answered Not available 05/20/2020 12:20:28 Reason for Referral None Reported. Results Created Date Observation Date Name Description Value Unit Range Abnormal Flag Note LastModifiedBy Organization Detail LastModifiedTime 05/20/20 20 05/21/2020 prola ctin, serum prolactin 29.00 NG/mL 4.79-2 3.30 high Not Available [facility]) [address], [place], [address], 05/21/2020 05:52:49 11/22/19 25 11/21/2024 DHEA SULFA TE DHEA-sulfate 207 ug/dL Femal e Range s Age(y ) Range (ug/d L) 10-15 34-28 0 15-20 65-36 8 20-25 148-4 07 25-35 99-34 0 35-45 61-33 7 45-55 35-25 6 55-65 19-20 5 65-75 9-246 > 75 12-15 4 : Routi ne : ENDOC ERVIC AL/CE RVICA L : add gc/ct /tric h to pap Not Available [facility] (Lab) [address] [place], [address], 11/28/2024 01:00:43 11/22/19 25 11/21/2024 ESTRA DIOL estradiol 59.9 pg/mL This assay was perfo rmed using [employer] ratio n reage nts and test kits. Value s obtai rhonda with other assay metho ds or kits canno t be used inter [facility] . Femal e Estra diol Range s: Folli cular phase 12.4- 233 pg/mL Ovula tion phase 41.0- 398 pg/mL Lutea l phase 22.3- 341 pg/mL Postm enopa usal <5-13 8 pg/mL Healt hy Pregn ant Women 1st Trime ster 154-3 243 pg/mL 2nd Trime ster 1561- 95570 pg/mL 3rd Trime ster 8525- >3000 0 pg/mL : Routi ne : ENDOC ERVIC AL/CE RVICA L : add gc/ct /tric h to pap Not Available [facility] (Lab) [address] [place], [address], 11/28/2024 01:00:44 11/22/19 25 11/21/2024 PROGE STERO NE progesterone 0.16 NG/mL This assay was perfo rmed using [employer] ratio n reage nts and test kits. Value s obtai rhonda with other assay metho ds or kits canno t be used inter [facility] . Femal e Proge stero ne Range s: Folli cular phase 0.06- 0.89 ng/mL Ovula tion phase 0.12- 12.00 ng/mL Lutea l phase 1.83- 23.90 ng/mL Postm enopa usal <0.05 -0.13 ng/mL Healt hy Pregn ant Women 1st Trime ster 11.0- 44.30 2nd Trime ster 25.40 -83.3 0 3rd Trime ster 58.70 -214. 00 : Routi ne : ENDOC ERVIC AL/CE RVICA L : add gc/ct /tric h to pap Not Available [facility] (Lab) [address] [place], [address], 11/28/2024 01:00:44 11/22/19 25 11/21/2024 PROLA CTIN prolactin, total 15.10 NG/mL 4.79-2 3.30 This assay was perfo rmed using [employer] ratio n reage nts and test kits. Value s obtai rhonda with other assay metho ds or kits canno t be used inter [facility] . : Routi ne : ENDOC ERVIC AL/CE RVICA L : add gc/ct /tric h to pap Not Available [facility] (Lab) [address] [place], [address], 11/28/2024 01:00:44 11/22/19 25 11/21/2024 FSH FSH 6.4 mIU/m L This assay was perfo rmed using [employer] ratio n reage nts and test kits. Value s obtai rhonda with other assay metho ds or kits canno t be used inter [facility] . Femal es Folli cular : 3.5-1 2.5 mIU/m L Ovula tion: 4.7-2 1.5 mIU/m L Lutea l: 1.7-7 .7 mIU/m L Postm enopa use: 25.8- 134.8 mIU/m L : Routi ne : ENDOC ERVIC AL/CE RVICA L : add gc/ct /tric h to pap Not Available [facility] (Lab) [address], [place], [address], 11/28/2024 01:00:45 11/22/1911/21/2024 LH (LUTE NIZIN G HORMO NE) LH 13.5 mIU/m L This assay was perfo rmed using [employer] ratio n reage nts and test kits. Value s obtai rhonda with other assay metho ds or kits canno t be used inter [facility] . Femal es Mid-F ollic ular: 2.4-1 2.6 mIU/m L Mid-C ycle: 14.0- 95.6 mIU/m L Mid-L uteal : 1.0-1 1.4 mIU/m L Postm enopa use: 7.7-5 8.5 mIU/m L : Routi ne : ENDOC ERVIC AL/CE RVICA L : add gc/ct /tric h to pap Not Available [facility] (Lab) [address] , [place], [address], 11/28/2024 01:00:45 11/22/1911/21/2024 TSH, REFLE X FREE T4 TSH 2.84 uIU/m L 0.30-5 .33 : Routi ne : ENDOC ERVIC AL/CE RVICA L : add gc/ct /tric h to pap Not Available [facility] (Lab) [address] , [place], [address], 11/28/2024 01:00:45 11/22/1911/21/2024 HUMAN SEX HORMO NE VIOLA NG GLOBU MAHSA sex hormone binding globulin 69.0 nmole s/L 18.2-1 35.5 : Routi ne : ENDOC ERVIC AL/CE RVICA L : add gc/ct /tric h to pap Not Available [facility] (Lab) [address] , [place], [address], 11/28/2024 01:00:46 11/22/19 25 11/21/2024 HEMOG LOBIN A1C hemoglobin A1C 4.9 % 4.0-5. 6 : Routi ne : ENDOC ERVIC AL/CE RVICA L : add gc/ct /tric h to pap The Ameri can [employer] [facility] [employer] i[employer] n recom mends that a prima ry goal of thera py shoul d be a HBA1C of < 7% and that physi cians shoul d reeva luate the treat ment regim en in patie nts with HBA1C value s consi stent ly > 8%. <5.7% Emma l 5.7 - 6.4% Incre ased risk for diabe milan >=6.5 % Diagn ostic of diabe milan <7.0% Goal of thera py >8.0% Actio n sugge sted Not Available [facility] (Lab) [address], [place], [address], 11/28/2024 01:00:46 11/22/19 25 11/21/2024 IMAGE GUIDE D PAP, REFLE X HPV IF ASCUS ONLY image guided Pap, reflex HPV ASCUS only SEE RESULT S BELOW abnormal CASE REPOR T: Cytol ogy Gynec ologi marcia Repor t Case: [id number] Autho wesly g Provi ugo: Meaghan Tolliver, LUIGI Sosa cted: 11/21 1623 Order ing Locat ion: [place] [facility] Recei matthew: 11/22 0945 First Scree n: Nick Upton, [place] Patho logis t: Darin Samayoa MD Speci men: Holger mcnamara Pap - Image d, Cervi x STATE MENT OF ADEQU ACY: Satis facto ry for evalu ation Trans forma tion zone compo nent prese nt ----- ----- ----- ----- ----- ----- ----- ----- ----- ----- ----- ----- ----- ----- ----- ----- ----- ---- FINAL DIAGN OSIS: Epith elial Cell Abnor malit y, Squam ous Cell: Atypi marcia Squam ous Cells of Undet ermin ed Donovan hook (ASC- US). Elect yoli hope by Darin Samayoa MD on 025 at 1333 CDT ----- ----- ----- ----- ----- ----- ----- ----- ----- ----- ----- ----- ----- ----- ----- ----- ----- ---- HPV RESUL TS: HPV mRNA E6/E7 : No HPV mRNA Detec cirilo NOTE: This high risk HPV mRNA assay detec ts fourt een high- risk HPV types (16, 18, 31, 33, 35, 39, 45, 51, 52, 56, 58, 59, 66, 68) witho ut diffe renti ation . COMME NT: This speci men was revie wed by a Cytot echno logis t and/o r Patho logis t (as indic ated in this repor t) after evalu ation using the Thinp rep Imagi ng Syste m. CLINI MARCIA INFOR MATIO N: Menst rual Statu s: LMP (if appli cable ): Clini marcia Histo ry/Pr eviou s Pap: Type of Neopl brody (if appli cable ): Donovan lozada t Clini marcia Findi ngs: Other Histo ry: Hormo ronnie (if appli cable ): GLORIA SALEHD FOLLO W-UP: Follo w up as warra nted, based on curre nt guide lines and indiv idual patie nt consi derat ions. Not Available [facility] (Lab) [address], [place], [address], 11/28/2024 01:00:46 11/22/1911/21/2024 CT/GC AND TRICH OMONA S VAGIN ANNE (RRNA ), THINP REP VIAL CT/GC and trichomonas vaginalis (rrna), thinprep SEE RESULT S BELOW negati ve CHLAM YDIA TRACH OMATI S, PCR: Negat sunny NEISS ERIA GONOR RHOEA E, PCR: Negat sunny TRICH OMONA S VAGIN ANNE RIBOS OMAL RNA (RRNA ): Negat sunny Not Available [facility] (Lab) [address], [place], [address], 11/28/2024 01:00:47 11/22/1911/21/2024 TESTO STERO NE, FREE( DIALY SIS) AND TOTAL (LC/M S/MS) testosterone , total 57 NG/dL 2-45 high For addit ional infor juan manuel bee e refer to http: //debbie calvin.que stdia gnost ics.c om/fa q/ Total Testo stero neLCM SMSFA Q165 (This link is being provi ded for infor tammy hopson/ educa rip l purpo ses only. ) This test was devel oped and its shemar tical perfo rmanc e diallo cteri stics have been deter mined by [employer] [place]. It has not been clear ed or appro matthew by the U.S. Food and Drug Admin istra tion. This assay has been valid ated pursu ant to the CLIA regul ation s and is used for clini marcia purpo ses. Not Available [facility] (Lab) [address], [place], [address], 11/28/2024 01:00:47 11/22/1911/21/2024 TESTO STERO NE, FREE( DIALY SIS) AND TOTAL (LC/M S/MS) testosterone , free 3.8 pg/mL 0.1-6. 4 This test was devel oped and its shemar tical perfo rmanc e diallo cteri stics have been deter mined by [employer] [place], [place]. It has not been clear ed or appro matthew by the U.S. Food and Drug Admin istra tion. This assay has been valid ated pursu ant to the CLIA regul ation s and is used for clini marcia purpo ses. : Routi ne : ENDOC ERVIC AL/CE RVICA L : add gc/ct /tric h to pap Perfo rming Organ izati on Infor mat n: Site ID: [id number] Name: Evonne Villarreal ostic s [employer] t[employer] Addre ss: [id number] [facility] [employer] [facility] [place], [place] Direc tor: Kacy Cazares MD PhD Not Available [facility] (Lab) [address], [place], [address], 11/28/2024 01:00:47 11/22/19 25 11/21/2024 17-OH PROGE STERO NE 17-hydroxypr ogesterone, lc/MS/MS 77 NG/dL Adult Femal e Refer ence Range s for 17-Hy droxy proge stero ne: Pre-M enopa usal Mid Folli cular : 23-10 2 ng/dL Pre-M enopa usal Surge : 67-34 9 ng/dL Pre-M enopa usal Mid Lutea l: 139-4 31 ng/dL Postm enopa usal Phase : < or = 45 ng/dL Pregn misty: First Trime ster: 78-45 7 ng/dL Secon d Trime ster: 90-35 7 ng/dL Third Trime ster: 144-5 78 ng/dL This test was devel oped and its shemar tical perfo rmanc e diallo cteri stics have been deter mined by [employer]stic [employer]. It has not been clear ed or appro matthew by the FDA. This assay has been valid ated pursu ant to the CLIA regul ation s and is used for clini marcia purpo ses. : Routi ne : ENDOC ERVIC AL/CE RVICA L : add gc/ct /tric h to pap Perfo rming Organ izati on Infor matio n: Site ID: [id number] Name: Evonne Villarreal ostic s/[facility] [place] , Addre ss: [id number] [place] [address] Direc tor: Brit shankar MD,Ph D,JORGE Not Available [facility] (Lab) [address], [place], [address], 11/28/2024 01:00:47 11/22/1911/21/2024 pregn misty test, urine HCG negati ve Not Available [facility] [address], [place], [address], 11/21/2024 16:57:58 05/20/20 US, trans vagin al No observ ation record ed. tiara Bettencourt [address], [place], [address], 05/24/2020 11:27:18 11/29/1911/28/2024 US, trans vagin al No observ ation [facility]. [facility] [address], [place], [address], 11/28/2024 16:56:32 11/29/1911/28/2024 US, trans vagin al No observ ation record ed. EVANGELINA Rut [address], [place], [address], 12/04/2024 14:16:45 Result Notes None recorded. Procedures Surgical History Date Name Laterality Status Provider Name and Address Organization Details Recorded Time 6 procedure on mouth completed Stephanie Bunch [facility] 04/17/2020 12:05:40 Remove tonsils and adenoids completed Stephanie Bunch [facility] 04/17/2020 12:05:15 Imaging Results None recorded. Procedure Notes None recorded. Medical Equipment None Reported. Allergies Allergen ID Allergen Name Allergen Category Reaction Reaction Severity Criticality Documentation Date Start Date Code Code System Note Provider Name and Address Organization Details Recorded Time 82197 Lexapro medicatio n Not available Not available Not available 11/21/2024 93270 1 RxNorm Kimberly braun [facility] 15:56:53 Medications Name Sig Start Date Stop Date Status Note LastModified by Organization Details LastModified Time drospirenone 3 mg-ethinyl estradiol 0.03 mg tablet TAKE 1 TABLET BY MOUTH EVERY DAY active Not Available Not Available No t Available cyclobenzapri ne 5 mg tablet TAKE 1 TABLET BY MOUTH THREE TIMES DAILY NEEDED FOR MUSCLE SPASM 11/21 completed Not Available Not Available Not Available Vitals Date Recorded Body height Body mass index (BMI) Body weight Systolic And Diastolic Provider Name and Address Organization Details Last Updated DateTime 11/21/2024 165.1 cm 22.1 kg/m2 85157.07 g 117/78 mm[Hg] [facility] 11/21/2024 15:56:07 Date Recorded Body height Body mass index (BMI) Body weight Systolic And Diastolic Provider Name and Address Organization Details Last Updated DateTime 12/04/2024 165.1 cm 22 kg/m2 55384.19 g 113/75 mm[Hg] [facility] 12/04/2024 09:12:05 Date Recorded Body height Body mass index (BMI) [Percentile] Per age and sex Body mass index (BMI) Body weight Systolic And Diastolic Provider Name and Address Organization Details Last Updated DateTime 05/20/2020 167.64 cm 1 % 15.2 kg/m2 70656.6 8 g 115/74 mm[Hg] Haley Calvert [facility] 0 11:58:17 Social History Question Answer Notes LastModified by Organizat ion Details LastModified Time Tobacco Smoking Status Former Smoker Haley Calvert [facility] 05/20/2020 11:58:37 In The 14 Days Before Symptom Onset, Have You Had Close Contact With A Laboratory-confirm ed COVID-19 While That Case Was Ill? No [email or web address] Information n ot available 11/21/2024 In The 14 Days Before Symptom Onset, Have You Had Close Contact With A Person Who Is Under Investigation For COVID-19 While That Person Was Ill? No [email or web address] Information not available 11/21/2024 Have You Been To An Area Known To Be High Risk For COVID-19? No [email or web address] Information not available 11/21/2024 What Was The Date Of Your Most Recent Tobacco Screening? 05/20/2020 Information not available 05/20/2020 How Much Tobacco Do You Smoke? No [email or web address] Information not available 05/20/2020 Sex: Unknown Functional Status Question Answer Note LastModified by Organizat ion Details LastModified Time What is your level of alcohol consumption? Occasional [email or web address] Information not available 05/20/2020 Do you or have you ever used smokeless tobacco? Never used smokeless tobacco [email or web address] Information not available 05/20/2020 Do you or have you ever used e-cigarettes or vape? Current user of electronic cigarettes [email or web address] Information not available 05/20/2020 What is your exercise level? Occasional [email or web address] Information not available 05/20/2020 Mental Status None recorded. Family History Relationship Description Onset Age of this Age Resolved Age Notes LastModified by Organization Details LastModified Time Maternal Aunt Anemia Not avail able 04/17/2020 12:02:46 Maternal Aunt Asthma Not avail able 04/17/2020 12:03:20 Maternal Aunt Diabetes mellitus [email or web address] Not available 2019 12:03:41 Maternal Aunt Hypercholest erolemia [email or web address] Not available 2019 12:03:51 Maternal Aunt Hypertensive disorder [email or web address] Not available 2019 12:04:02 Maternal Aunt Disorder of thyroid gland [email or web address] Not available 2019 12:04:22 Maternal Aunt Kidney disease [email or web address] Not available 2019 12:04:31 Sister Asthma [email or web address] Not available 12:03:20 Brother Asthma [email or web address] Not available 1 06/17/2019 12:03:20 Mother Heart disease [email or web address] Not available 2019 12:03:30 Mother Cyst of ovary [email or web address] Not available 2019 12:04:14 Maternal Grandfather Diabetes mellitus [email or web address] Not available 2019 12:03:41 Maternal Grandmother Hypertensive disorder [email or web address] Not available 2019 12:04:02 Maternal Grandmother Cyst of ovary [email or web address] Not available 2019 12:04:14 Unspecified Relation Malignant neoplasm of ovary Great grandm other [email or web address] Not available 12/04/2024 09:13:07 Medical History Condition Response Allergies (Food, seasonal, environmental ) N Other N Breast Cancer N Drug/Latex Allergies/Reactions N Blood Transfusion N Dermatologic Disorders N Lung Disease N Defects or Inherited Disease N Breast Problem N Gestational Diabetes N Hematologic disorders N Anesthesia Complications N History of STI N Deep Vein Thrombosis N Polycystic ovary syndrome N Anxiety Disorder N Autoimmune disease N Arthritis N Infertility N Polyps N Acid Reflux (GERD) N History of abnormal pap N Cancer N Stroke N Varicosities N Neurologic/Epilepsy N Endometriosis N High Cholesterol N Headaches N Fibromyalgia N Kidney Disease N Heart Problems N Kidney or Bladder Problems N Thyroid Problems N GI Problems N Eating Disorder N Anemia N Art (IVF or FET) N Psychiatric Illness N Ovarian Cancer N Diabetes N Pulmonary (TB, Asthma) N Hepatitis/Liver Disease N No Past Medical History N Eczema N Urinary Tract Infection N Abuse/Domestic Violence N Asthma N Trauma/Violence N Depression/ depression N Heart Disease N Pre-Eclampsia N Hypertension N Osteoporosis N Thrombophilias N Gynecological History Statement/Question Response Flow Heavy Date of Last Mammogram Date of LMP 11/12/2024 Was last menstrual period normal N STIs/STDs N Duration of Flow (days) Current Control Method None Are cycles usually normal N Date of Last Colonoscopy Frequency of Cycle (Q days) Sexually Active? Y Menses Monthly N Date of DEXA bone scan Date of Last Pap Smear Sexual Problems? N LMP Approximate Obstetrics History GPAL:G 0 P 0 0 0 0 Past Encounters Encounter ID Performer Location Encounter Start Date Encounter Closed Date Diagnosis/Indication Diagnosis SNOMED-CT Code Diagnosis ICD10 Code Diagnosis Note [id number] [facility] [address] [address] 04/17/2020 11:59:42 04/17/2020 16:35:16 Irregular periods 67379237 N92.6 With her hx of irregular cycles/per iods of amenorrhea we agreed on updated TVUS & complete lab work. Recommende d that she schedule f/u with Shelli Bridges who specialize s in Infertilit y as this is the patients ultimate goal. She is in agreement. No further questions. Time spent in visit is a total of 30 mins with at least 50% of visit consisting of counseling and review of plan of care. Secondary amenorrhea 156 192114 N91.1 [id number] Isidoro Mckeon MD [facility] [address] [address] 05/20/2020 11:26:58 05/20/2020 11:49:30 Irregular periods 93037787 N92.6 [id number] Chen BridgesENEDINA [facility] [address] [address] 05/20/2020 11:27:41 05/20/2020 12:21:35 Irregular periods 42890724 N92.6 [id number] Meaghan Tolliver LUIGI [facility] [address] [address] 11/21/2024 15:28:37 11/21/2024 16:58:59 Irregular periods 53154504 N92.6 Discussed irregular period hxplan labs and pelvic u/sRTC to review result and discuss next steps Pain of breast 04686820 N64.4 order given for breast u/s Cancer cer vix screening status 762445530 Z12.4 pap done, gc/ct/tric h testing added to pap Time spent in visit is a total of 30 mins with at least 50% of visit consisting of counseling and review of plan of care. Venereal d isease screening 509111709 Z11.3 Gynecologi c examination 43322729 Z01.419 [id number] Isidoro Mckeon MD [facility] [address],[place] [address] 11/28/2024 10:27:21 11/28/2024 10:56:39 Irregular periods 28302981 N92.6 [id number] Meaghan Tolliver [facility] [address] [address] 12/04/2024 08:56:15 12/04/2024 14:06:30 Polycystic ovary syndrome 991902067 E28.2 Reviewed updated labs and pelvic u/s. Meets criteria for PCOS diagnosisW e discussed the underlying disease process.. We discussed the prevention of endometria l cancer. We discussed protecting the endometriu m and how that is carried out. We discussed treatment in the context of a desired . We discussed medical treatment. We discussed the risk associated with PCOS and long-term health outcomes. Discussed hormonal contracept ion vs cyclic progestero ne therapyopt s to restart OCP, rx sent, r/b/a reviewedmy o-inositol supplement ation reviewedRT C for med check in 4 months rec Time spent in visit is a total of 30 mins with at least 50% of visit consisting of counseling and review of plan of care. Health Concerns Section Related Observation LastModified by Organization Detai ls LastModified Time None Recorded Concern Status LastModified by Organization Details LastModified Time None Recorded Advance Directives Directive None Recorded Payers Insurance Date Sequence Insurance Name Policy Number Policy Avilez Covered Member ID Avilez Member ID Guarantor Name 12/04/2024 1 [place] [id number] Kandi Yulisa [id number] Kandi Dewey 11/12/2024 1 [place] [id number] Kathy Dewey [id number] Kandi Yulisa 12/04/2024 PAYMENT PLAN Kandi Dewey Notes Date Note Type Note Provider Name and Address Organization Details Recorded Time 0 text/html pt would like to have a baby, worried wont be able to, has had very irregular cycles since started. will go months without, us wnl and prolactin elevated, will rpt fasting today but suspect will need MRI, reviewed all of this with pt and will start pnv Chen Bridges, ENEDINA [address], [place], [address], [place] [facility] 05/20/2020 12:21:01 5 text/html 24yo [id number] for evaluation of irregular periodsh/o irregular periods since menarche, will go 6+without a period. Periods heavy when they do happen. Last period 11/13 heavy/painful/with clots.SA with , not TTC but not preventingbilateral breast pain x 2 months last pap 2019 wnl Kimberly braun, [facility] 11/21/2024 17:20:47 5 text/html 24yopresents for f/u on labs and pelvic u/s irregular periodsh/o irregular periods since menarche, will go 6+without a period. Periods heavy when they do happen. Last period 11/13 heavy/painful/with clots.SA with , not TTC but not preventingbilateral breast pain x 2 monthslast pap 2019 wnl Meaghan Tolliver, MATIAS [address], [place], [address], [place] [facility] 12/04/2024 13:59:13 OBGyn Episode No OBEpisode recorded.
--- OUTSIDE RECORDS SUMMARY | 2024-12-17 11:02 | XMS_ITS | Clinical Summary ---
Author Organization [facility] [address] [facility] Address [address] [place] [address] Care Team Providers Care Valve Tester Name Role Phone No, Physician Primary Care Provider [phone] Allergies Active Allergy Reactions Criticality Noted Date Comments Escitalopram Palpitations Low 01/14/2021 Heart was racing and gave pt anxiety and suicidal thoughts Medications sertraline (ZOLOFT) 50 mg tablet Take 1 tablet (50 mg total) by mouth daily 90 tablet 2 2 Active ketorolac (TORADOL) 10 mg tablet Take 1 tablet (10 mg total) by mouth every 6 (six) hours as needed for pain 30 tablet 5 Active ondansetron ODT (ZOFRAN-ODT) 4 mg disintegrating tablet Take 1 tablet (4 mg total) by mouth every 8 (eight) hours as needed for nausea or vomiting 20 tablet 5 Active Active Problems Problem Noted Date Diagnosed Date Cyst of left ovary 12/23/2021 Assessment & Plan (12/23/2021 5:51 PM CDT): Discussed imaging from [facility] indicating cyst - advised tranvaginal US and follow up with her gum worker. She is going to call Dr. Aguirre's office for an appt. History of appendectomy 12/23/2021 Assessment & Plan (12/23/2021 5:53 PM CDT): Discussed advancing diet as tolerated Encouraged her that recovery for this will take time and to allow herself to rest Discussed stool cultures for c diff if stooling frequency does not improve. Encouraged her to add in probiotics otc daily x 30d. Aspiration pneumonia 12/23/2021 Assessment & Plan (12/23/2021 5:51 PM CDT): Symptoms resolved at this time Tobacco use disorder 09/01/2021 Assessment & Plan (09/01/2021 6:39 PM CDT): Advised smoking cessation Elevated prolactin level 09/01/2021 Assessment & Plan (09/01/2021 6:39 PM CDT): Advised further evaluation with prolactin, mri of head - she declines at this time due to finances Chronic intractable headache 02/12/2021 Cigarette smoker 12/04/2020 Positive depression screening 12/02/2020 Nicotine vapor product user 12/02/2020 Assessment & Plan (12/02/2020 6:15 PM CDT): Advised her to stop vaping, advised decreasing dose weekly BMI less than 19,adult 12/02/2020 Assessment & Plan (02/12/2021 9:27 AM CDT): Weight/BMI is in healthy range. Continue healthy lifestyle to maintain. Assessment & Plan (01/14/2021 11:31 AM CDT): Weight/BMI is in healthy range. Continue healthy lifestyle to maintain. Anxiety 12/02/2020 Assessment & Plan (02/12/2021 10:16 AM CDT): Will complete a slow taper of buspar - 5mg bid x 3d, then 5mg at hs x 3d, then discontinue Will increase zoloft to 50mg every day She will report to the er if having s/h ideations Assessment & Plan (01/14/2021 12:34 PM CDT): Add buspar tid, discussed increasing pending response. Discontinue atarax. Will refer to psychiatrist due to family history of bipolar disorder and anxiety/depression not responding to medications. Assessment & Plan (12/04/2020 8:37 AM CDT): Add prn atarax, discontinue lorazepam from er. Advised no driving after taking atarax as it may make her drowsy. Assessment & Plan (12/02/2020 6:17 PM CDT): Will start on lexapro every day. Advised to er if having s/h ideations. Discussed f/u appt in 4w to discuss dose increase. She is going to restart counseling, will let us know if needing referral. Amenorrhea 12/02/2020 Assessment & Plan (09/01/2021 6:38 PM CDT): Advised further evaluation with prolactin, mri of head - she declines at this time due to finances Will initiate apri - advised starting after next cycle has finished. Patient advised to not smoke as smoking when taking ocp can increase risk for blood clots. Patient advised to take ocp at same time each day and start ocp the day after menses finishes. Patient reminded to use back up prevention the first two months after starting ocp. Patient reminded that ocp does not prevent against STDs. Patient reminded that if taking other medications, such as antibiotics or medications for anxiety or depression, could interact with ocp and increase risk for . Assessment & Plan (01/14/2021 12:33 PM CDT): Advised further evaluation and treatment with gum worker. Will initiate labs, will notify of results as available. Assessment & Plan (12/02/2020 6:16 PM CDT): Workup with Dr. Aguirre pending. We discussed referral to fertility specialist pending results. Episode of recurrent major depressive disorder 0 12/02/2020 Assessment & Plan (09/01/2021 6:38 PM CDT): Will restart zoloft daily, discussed increasing over coming weeks if symptoms aren't improving Assessment & Plan (02/12/2021 10:16 AM CDT): Will increase zoloft to 50mg every day She will report to the er if having s/h ideations Assessment & Plan (01/14/2021 12:34 PM CDT): Will refer to psychiatrist due to family history of bipolar disorder and anxiety/depression not responding to medications. Assessment & Plan (12/04/2020 8:37 AM CDT): Add daily zoloft, discontinue lexapro. She makes pact to report to er if having s/h ideations. Will keep f/u appt as planned but will contact office in the interim if new symptoms arise or conditions aren't improving. Assessment & Plan (12/02/2020 6:17 PM CDT): Will start on lexapro every day. Advised to er if having s/h ideations. Discussed f/u appt in 4w to discuss dose increase. She is going to restart counseling, will let us know if needing referral. Resolved Problems Problem Noted Date Diagnosed Date Resolved Date control counseling 09/01/2021 Assessment & Plan (09/01/2021 6:39 PM CDT): Patient advised to not smoke as smoking when taking ocp can increase risk for blood clots. Patient advised to take ocp at same time each day and start ocp the day after menses finishes. Patient reminded to use back up prevention the first two months after starting ocp. Patient reminded that ocp does not prevent against STDs. Patient reminded that if taking other medications, such as antibiotics or medications for anxiety or depression, could interact with ocp and increase risk for . Dysuria 08/22/2021 12/23/2021 Assessment & Plan (08/22/2021 9:16 PM CDT): Pt presents with dysuria. Urine dip completed. Send urine culture. Antibiotic to pharmacy. Reviewed bladder care. Will send lotrisone as may have some external irritation while waiting for the urine culture. Missed period 06/24/2021 12/23/2021 Assessment & Plan (06/24/2021 5:56 PM MEDICAL RECORD LIBRARIAN): Serum hcg today, will notify her of results as they become available Advised her to contact Dr. Aguirre's office for f/u regarding pituitary gland and irregular menses. Encounter to establish care 12/02/2020 09/01/2021 Encounters Date Type Department Care Team Description 11/13/2024 12:27 PM CDT - 11/13/2024 2:[address] [facility] [address] [place] [id number] Dysmenorrhea (Primary Dx) Discharge Disposition: Discharge to home or self care from Last 3 Months Immunizations Immunization Administration Dates Next Due Influenza, Unspecified 06/24/2021(Deferr ed: Patient Refused),02/27/2020(Deferred: Patient Refused) Surgical History Surgery Date Site/Laterality Comments ARM SURGERY 05/29/2005 - 05/28/2006 TONSILECTOMY, ADENOIDECTOMY, BILATERAL MYRINGOTOMY AND TUBES ADENOIDECTOMY ELBOW HARDWARE REMOVAL Medical History Medical History Date Comments Anemia Anxiety Depression Family History Medical History Relation Name Comments No Known Problems Father Ovarian cancer Maternal Grandmother Ovarian cancer Maternal Great-Grandmother Depression Mother Relation Name Status Comments Father Alive Maternal Grandmother Alive Maternal Great-Grandmother Mother Alive Social History Tobacco Use Types Packs/Day Years Used Date Smoking Tobacco: Every Day Vaping Smokeless Tobacco: Never AUDIT-C Answer Date Recorded Q1: How often do you have a drink containing alc ohol? Monthly or less 06/24/2021 Average Number of Drinks Not on file 022 Frequency of Binge Drinking Not on file 05/30 PHQ-2 Answer Date Recorded PHQ-2 Total Score (If total score is 3 or more points, staff should administer the PHQ-9) 4 09/01/2021 Personal Safety Answer Date Recorded Have you ever been in or are you currently in a harmful physical or emotional relationship or is someone making you feel afraid or unsafe? Denies 11/13/2024 Comments Unknown Sex and Gender Information Value Date Recorded Sex Assigned at Not on file Legal Sex Female 5:10 PM CDT Gender Identity Female 08/30/2021 9:44 PM CDT Sexual Orientation Straight 08/30/2021 9: 44 PM CDT Obstetrics History Last Filed Vital Signs Vital Sign Reading Time Taken Comments Blood Pressure 105/56 11/13/2024 2:23 PM CDT Pulse 73 11/13/2024 2:23 PM CDT Temperature 36.9 C (98.4 F) 11/13/2024 11:44 AM CDT Respiratory Rate 16 11/13/2024 2:23 PM CDT Oxygen Saturation 97% 11/13/2024 2:23 PM CDT Inhaled Oxygen Concentration - - Weight 59.8 kg (131 lb 13.4 oz) 025 11:44 AM CDT Height 162.6 cm (5' 4) 12/23/2021 11:3 3 AM CDT Body Mass Index 22.63 12/23/2021 11:33 AM CDT Plan of Treatment Health Maintenance Due Date Last Done Comments Cervical Cancer Screening 1999 Hepatitis C Screening 1999 DTaP/Tdap/Td Vaccine (1 - Tdap) 11/08/2010 Varicella Vaccines (1 of 2 - 13+ 2-dose series) 11/08/2012 HPV Vaccines (1 - 3-dose series) 11/08/2014 Hepatitis B Screening 11/08/2017 Regular Well Visit/Exam 18-64 11/08/2017 Pneumococcal vaccine <65 (1 of 2 - PCV) 11/08/2018 Depression Screening 09/01/2022 09/01/2021, 06/24/2021, 02/12/2021, Additional history exists Covid-19 Vaccine (3 - 2023-2 5 season) 2024 04/28/2021, 04/07/2021 Influenza Vaccine (Season Ended) 2025 Procedures Procedure Name Priority Date/Time Associated Diagnosis Comments EGFR STAT 11/13/2024 11:55 AM CDT URINALYSIS, MICROSCOPIC ONLY STAT 11/13/2024 11:55 AM CDT DIFFERENTIAL AUTO STAT 11/13/2024 11: 55 AM CDT LIPASE STAT 11/13/2024 11:55 AM CDT COMPREHENSIVE METABOLIC PANEL STAT 11/13/2024 11:55 AM CDT CBC WITH AUTO DIFFERENTIAL STAT 11/13/2024 11:55 AM CDT URINALYSIS AND REFLEX TO MICROSCOPIC AND CULTURE STAT 11/13/2024 11:55 AM CDT POCT HCG, URINE Routine 11/13/2024 11:54 AM CDT from Last 3 Months Results * eGFR (11/13/2024 11:55 AM CDT) eGFR >90 >=60 mL/min/1. 73 m2 Comment: Interpretive Data Reference Interval Normal >/= 90 mL/min/1.73m2 Mildly decreased* 60 - 89 mL/min/1.73m2 Mildly to moderately decreased 45 - 59 mL/min/1.73m2 Moderately to severely decreased 30 - 44 mL/min/1.73m2 Severely decreased 15 - 29 mL/min/1.73m2 Kidney Failure < 15 mL/min/1.73m2 *Relative to young adult level Estimated glomerular filtration rate is determined by the 2020 CKD-EPI equation recommended by the National Kidney Foundation (A Unifying Approach to GFR Estimation: Recommendations of the NKF-ASK Task Force on Reassessing the Inclusion of Race in Diagnosing Kidney Disease, JASN 2020). The CKD-EPI equation should not be used for patients with unstable renal function and has not been validated in children and those over 70. Current interpretive data was last reviewed 2021. Testing performed by: [facility], [address] [place] [address]., [id number] Blood 11/13/2024 11:5 5 AM CDT 11/13/2024 12:04 PM CDT us Derian Figueredo DO LAB BLOOD ORDERABLES Final Result [place] [address] [facility] Department [place] [address] * Differential, auto (11/13/2024 11:55 AM CDT) [facility] Neutrophil abs 6.02 1.50 - 6.50 K/cumm Comment:Testing performed by : [address] [address] Imm gran abs 0.05 0.00 - 0.10 K/cumm [facility] Comment:Testing performed by : [address] [address] Lymphocyte abs 2.45 0.80 - 3.30 K/cumm [facility] Comment:Testing performed by : [address] [address] Monocyte abs 0.75 0.20 - 0.80 K/cumm [facility] Comment:Testing performed by : [address] [address] Eosinophil abs 0.10 0.00 - 0.50 K/cumm [facility] Comment:Testing performed by : [address] [address] Basophil abs 0.06 0.00 - 0.10 K/cumm [facility] Comment:Testing performed by : [address] [address] Neutrophil pct 63.8 % [facility] Comment: Interpretive Data Percent cell count reference ranges are not reported, since discordance with absolute values may lead to misinterpretation of CBC data. Current Interpretive Data was last revised on 2017. Testing performed by: [address] [address] Imm gran pct 0.5 % [facility] Comment: Interpretive Data Percent cell count reference ranges are not reported, since discordance with absolute values may lead to misinterpretation of CBC data. Current Interpretive Data was last revised on 2017. Testing performed by: [address] [address] Lymphocyte pct 26.0 % [facility] Comment: Interpretive Data Percent cell count reference ranges are not reported, since discordance with absolute values may lead to misinterpretation of CBC data. Current Interpretive Data was last revised on 2017. Testing performed by: [address] [address] Monocyte pct 8.0 % [facility] Comment: Interpretive Data Percent cell count reference ranges are not reported, since discordance with absolute values may lead to misinterpretation of CBC data. Current Interpretive Data was last revised on 2017. Testing performed by: [address] [address] Eosinophil pct 1.1 % JOHN Comment: Interpretive Data Percent cell count reference ranges are not reported, since discordance with absolute values may lead to misinterpretation of CBC data. Current Interpretive Data was last revised on 2017. Testing performed by: [address] [address] Basophil pct 0.6 % JOHN Comment: Interpretive Data Percent cell count reference ranges are not reported, since discordance with absolute values may lead to misinterpretation of CBC data. Current Interpretive Data was last revised on 2017. Testing performed by: [address] [address] Blood 11/13/2024 11:5 5 AM CDT 11/13/2024 12:04 PM CDT us Derian Figueredo DO LAB BLOOD ORDERABLES Final Result JOHN [address] [facility] Department of Laboratories [place], [place] [id number] * (ABNORMAL) Urinalysis reflex to microscopic and culture Urine (11/13/2024 11:55 AM CDT) Color, ur Straw Yellow Comment:Testing performed by : [address] [address] Clarity, ur Clear Clear JOHN Comment:Testing performed by : [address] [address] Specific gravity, ur 1.008 1.003 - 1.030 JOHN Comment:Testing performed by : [address] [address] pH, urine 6.5 JOHN Comment: Interpretive Data U rine pH is affected by diet, medications, systemic acid-base disturbances, and renal tubular function. pH may affect urinary stone formation. For example, urine pH below 6.0 may help reduce the tendency for calcium phosphate stones and pH greater than 6.0 may reduce the tendency for uric acid stone formation. Source: [facility] [employer] Current Interpretive Data was last revised on 2017 Testing performed by: [facility], [address] [place] [address]., [address] Protein, ur ql Negative Negative JOHN Comment:Testing performed by : [address] [address] Glucose, ur ql Negative Negative JOHN Comment:Testing performed by : [address] [address] Ketones, ur Negative Negative JOHN Comment:Testing performed by : [address] [address] Bilirubin, ur Negative Negative JOHN Comment:Testing performed by : [address], [place]., [address] Blood, ur 3+(A) Negative JOHN Comment:Testing performed by : [address] [address] Urobilinogen, ur <2.0 <2.0 mg/dL JOHN Comment:Testing performed by : [address] [address] Nitrite, ur Negative Negative JOHN Comment:Testing performed by : [address] [address] Leukocyte esterase, ur Negative Negative JOHN Comment:Testing performed by : [address] [address] UA reflex comment Reflex to microscopic UA will be performed. JOHN Comment:Testing performed by : [address] [address] Urine 11/13/2024 11:5 5 AM CDT 11/13/2024 12:04 PM CDT us Derian Figueredo DO LAB MICROBIOLOGY - GENERAL ORDERABLES Final Result JOHN [place] [address] [facility] Department [place] [address] * (ABNORMAL) CBC with auto differential (11/13/2024 11:55 AM CDT) [facility] Signature WBC 9.43 3.80 - 9.90 K/cumm Comment:Testing performed by : [address] [address] Hgb 13.0 11.9 - 15.5 g/dL JOHN Comment:Testing performed by : [address] [address] Hct 40.5 35.6 - 45.5 % JOHN Comment:Testing performed by : [address], [address] Plt 284 150 - 400 K/cumm JOHN Comment:Testing performed by : [address] [address] MPV 11.0 9.1 - 12.3 fL JOHN Comment:Testing performed by : [address], [address] RBC 4.83 3.90 - 5.20 M/cumm JOHN Comment:Testing performed by : [address] [address] MCV 83.9 81.3 - 96.4 fL JOHN Comment:Testing performed by : [address] [address] MCH 26.9(L) 27.1 - 33.3 pg JOHN Comment:Testing performed by : [address] [address] MCHC 32.1(L) 32.3 - 35.7 g/dL JOHN Comment:Testing performed by : [address] [address] RDW CV 13.4 11.1 - 14.9 % JOHN Comment:Testing performed by : [address] [address] RDW SD 41.3 35.7 - 48.1 fL JONH Comment:Testing performed by : [address], [address] NRBC abs 0.00 0.00 - 0.01 K/cumm JOHN Comment:Testing performed by : [address] [address] Blood Venous blood specimen / Unknown 11/13/2024 11:55 AM CDT 11/13/2024 12:04 PM CDT Derian Figueredo DO LAB BLOOD ORDERABLES Final Result Performing Organization Address City/[facility] Co de Phone Number JOHN [address] [employer] [address] * (ABNORMAL) Urinalysis, microscopic only (11/13/2024 11:55 AM CDT) WBC, ur 0-5 0 - 5 /HPF Comment:Testing performed by : [address] [address] RBC, ur >50(A) 0 - 2 /HPF JOHN Comment:Testing performed by : [address] [address] Epithelial cells, squamous, ur 1-5 0 - 5 /HPF JOHN Comment:Testing performed by : [address] [address] Culture Reflex Comment Reflex conditions for urine culture (WBC >10) not met. JOHN Comment:Testing performed by : [address] [address] Urine 11/13/2024 11:5 5 AM CDT 11/13/2024 12:04 PM CDT Derian Figueredo DO LAB URINE ORDERABLES Final Result Performing Organization Address [facility] Co de Phone Number [facility] [address] [place] [address] * Lipase (11/13/2024 11:55 AM CDT) Lipase 28 10 - 99 Units/L Comment:Testing performed by : [address] [address] Blood Venous blood specimen / Unknown 11/13/2024 11:55 AM CDT 11/13/2024 12:04 PM CDT Derian Figueredo DO LAB BLOOD ORDERABLES Final Result [facility] [address] [facility] Department [place] [address] * (ABNORMAL) Comprehensive metabolic panel (11/13/2024 11:55 AM CDT) Sodium 139 135 - 145 mmol/L Comment:Testing performed by : [address] [address] Potassium, pl 3.6 3.3 - 4.9 mmol/L JOHN Comment:Testing performed by : [address] [address] Chloride 101 97 - 110 mmol/L JOHN Comment:Testing performed by : [address] [address] CO2 26 22 - 32 mmol/L JOHN Comment:Testing performed by : [address] [address] Anion gap 12 2 - 15 mmol/L JOHN Comment:Testing performed by : [address] [address] BUN 6 6 - 25 mg/dL JOHN Comment:Testing performed by : [address] [address] Creatinine 0.55(L) 0.60 - 1.10 mg/dL JOHN Comment:Testing performed by : [address] [address] Glucose 93 70 - 199 mg/dL JOHN Comment: Interpretive Data Fasting glucose >/= 126 mg/dl is diagnostic for diabetes. Fasting is defined as no caloric intake for at least 8 hours. Fasting glucose between 100 mg/dl to 125 mg/dl is diagnostic of prediabetes. In a patient with classic symptoms of hyperglycemia or hyperglycemic crisis, a random glucose >/= 200 mg/dl is diagnostic for diabetes. In the absence of unequivocal hyperglycemia, results should be confirmed by repeat testing. The classification and Diagnosis of Diabetes Diabetes Care 2021; 46: S19-S40. Current interpretive data was last revised 2022. Testing performed by: [address] [address] Calcium 9.7 8.5 - 10.3 mg/dL JOHN Comment:Testing performed by : [address] [address] Bilirubin, total 0.8 0.1 - 1.2 mg/dL JOHN Comment:Testing performed by : [address] [address] Protein, pl 8.2 6.5 - 8.5 g/dL JOHN Comment:Testing performed by : [address] [address] Albumin 4.6 3.5 - 5.0 g/dL JOHN Comment:Testing performed by : [address] [address] Alk phos 83 40 - 130 Units/L JOHN Comment:Testing performed by : [address] [address] ALT 13 7 - 45 Units/L JOHN Comment:Testing performed by : [address] [address] AST 25 10 - 45 Units/L JOHN Comment:Testing performed by : [address] [address] Blood 11/13/2024 11:5 5 AM CDT 11/13/2024 12:04 PM CDT us Derian Figueredo DO LAB BLOOD ORDERABLES Final Result JOHN [place] [address] [facility] Department [place] [address] * POCT hCG, urine (11/13/2024 11:54 AM CDT) HCG, ur, POC Negative Negative Lot Number [id number] QC Backgroud Clear Acceptable QC Control Line Acceptable Urine 11/13/2024 11:5 4 AM CDT Derian Figueredo DO POINT OF CARE TEST ORDERABL ES Final Result from Last 3 Months Insurance [employer] [place] [employer] [place] Care Teams Valve Tester Relationship Specialty Start Date End Date No, Physician PCP - General 11/13/24
--- OUTSIDE RECORDS SUMMARY | 2024-12-17 11:02 | XMS_ITS | Referral Summary ---
Author Organization [facility] [place] [address] [facility] Address [address] [place] [address] Care Team Providers Care It Project Coordinator Name Role Phone No, Physician Primary Care Provider [phone] Encounters Date Type Department Care Team Description 11/13/2024 12:27 PM CDT - 11/13/2024 2:27 PM CDT Emergency [facility] Emergency Department [address] [place] [address] Dysmenorrhea (Primary Dx) Discharge Disposition: Discharge to home or self care from Last 3 Months Allergies Active Allergy Reactions Criticality Noted Date [...] tranvaginal US and follow up with her chiller hand. She is going to call Dr. Aguirre's [...] CDT): Advised further evaluation and treatment with chiller hand. 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 Aguirre's office for f/u regarding pituitary gland and irregular menses. Encounter to establish care 12/02/2020 09/01/2021 Immunizations Immunization Administration Dates Next Due Influenza, Unspecified 06/24/2021(Deferr ed: Patient Refused),02/27/2020(Deferred: Patient Refused) Social History Tobacco Use Types Packs/Day Years [...] Orientation Straight 08/30/2021 9: 44 PM CDT Last Filed Vital Signs Vital Sign Reading [...] 12/23/2021 11:33 AM CDT Plan of Treatment Not on file Procedures Procedure Name Priority Date/Time Associated Diagnosis [...] of Race in Diagnosing Kidney Disease, JASN 202). The CKD-EPI equation should not be used for patients with unstable renal function and has not been validated in children and those over 70. Current interpretive data was last reviewed 2021. Testing performed by: [address] [address] Blood 11/13/2024 11:5 5 AM CDT 11/13/2024 12:04 PM CDT us Derian Figueredo DO LAB BLOOD ORDERABLES Final Result JOHN [address] [facility] Department [place] [address] * Differential, auto (11/13/2024 11:55 AM CDT) Neutrophil abs 6.02 1.50 - 6.50 K/cumm Comment:Testing performed by : [address] [address] Imm gran abs 0.05 0.00 - 0.10 K/cumm JOHN Comment:Testing performed by : [address] [address] Lymphocyte abs 2.45 0.80 - 3.30 K/cumm JOHN Comment:Testing performed by : [address] [address] Monocyte abs 0.75 0.20 - 0.80 K/cumm JOHN Comment:Testing performed by : [address] [address] Eosinophil abs 0.10 0.00 - 0.50 K/cumm JOHN Comment:Testing performed by : [address] [address] Basophil abs 0.06 0.00 - 0.10 K/cumm JOHN Comment:Testing performed by : [address] [address] Neutrophil pct 63.8 % JOHN Comment: Interpretive Data Percent cell count reference ranges are not reported, since discordance with absolute values may lead to misinterpretation of CBC data. Current Interpretive Data was last revised on 2017. Testing performed by: [address] [address] Imm gran pct 0.5 % [facility] Comment: Interpretive Data Percent cell count reference ranges are not reported, since discordance with absolute values may lead to misinterpretation of CBC data. Current Interpretive Data was last revised on 2017. Testing performed by: [address] [address] Lymphocyte pct 26.0 % [facility] Comment: Interpretive Data Percent cell count reference ranges are not reported, since discordance with absolute values may lead to misinterpretation of CBC data. Current Interpretive Data was last revised on 2017. Testing performed by: [address] [address] Monocyte pct 8.0 % [facility] Comment: Interpretive Data Percent cell count reference ranges are not reported, since discordance with absolute values may lead to misinterpretation of CBC data. Current Interpretive Data was last revised on 2017. Testing performed by: [address] [address] Eosinophil pct 1.1 % [facility] Comment: Interpretive Data Percent cell count reference ranges are not reported, since discordance with absolute values may lead to misinterpretation of CBC data. Current Interpretive Data was last revised on 2017. Testing performed by: [address] [address] Basophil pct 0.6 % [facility] Comment: Interpretive Data Percent cell count reference ranges are not reported, since discordance with absolute values may lead to misinterpretation of CBC data. Current Interpretive Data was last revised on 2017. Testing performed by: [address] [address] Blood 11/13/2024 11:5 5 AM CDT 11/13/2024 12:04 PM CDT us Derian Figueredo DO LAB BLOOD ORDERABLES Final Result JOHN SULLIVAN [address] [facility] Department [place] [address] * (ABNORMAL) Urinalysis reflex to microscopic and culture Urine (11/13/2024 11:55 AM CDT) Color, ur Straw Yellow Comment:Testing performed by : [address] [address] Clarity, ur Clear Clear JOHN Comment:Testing performed by : [address] [address] Specific gravity, ur 1.008 1.003 - 1.030 JOHN Comment:Testing performed by : [address] [address] pH, urine 6.5 JOHN Comment: Interpretive Data U rine pH is affected by diet, medications, systemic acid-base disturbances, and renal tubular function. pH may affect urinary stone formation. For example, urine pH below 6.0 may help reduce the tendency for calcium phosphate stones and pH greater than 6.0 may reduce the tendency for uric acid stone formation. Source: [facility] Current Interpretive Data was last revised on 2017 Testing performed by: [address] [address] Protein, ur ql Negative Negative JOHN Comment:Testing performed by : [address] [address] Glucose, ur ql Negative Negative JOHN Comment:Testing performed by : [address] [address] Ketones, ur Negative Negative JOHN Comment:Testing performed by : [address] [address] Bilirubin, ur Negative Negative JOHN Comment:Testing performed by : [address] [address] Blood, ur 3+(A) Negative JOHN SULLIVAN Comment:Testing performed by : [address] [address] Urobilinogen, ur <2.0 <2.0 mg/dL JOHN SULLIVAN Comment:Testing performed by : [address] [address] Nitrite, ur Negative Negative JOHN SULLIVAN Comment:Testing performed by : [address] [address] Leukocyte esterase, ur Negative Negative JOHN SULLIVAN Comment:Testing performed by : [address] [address] UA reflex comment Reflex to microscopic UA will be performed. JOHN SULLIVAN Comment:Testing performed by : [address] [address] Urine 11/13/2024 11:5 5 AM CDT 11/13/2024 12:04 PM CDT Derian Figueredo DO LAB MICROBIOLOGY - GENERAL ORDERABLES Final Result JOHN SULLIVAN [facility] Department [place] [address] * (ABNORMAL) CBC with auto differential (11/13/2024 11:55 AM CDT) WBC 9.43 3.80 - 9.90 K/cumm Comment:Testing performed by : [address] [address] Hgb 13.0 11.9 - 15.5 g/dL JOHN SULLIVAN Comment:Testing performed by : [address] [address] Hct 40.5 35.6 - 45.5 % JOHN SULLIVAN Comment:Testing performed by : [address] [address] Plt 284 150 - 400 K/cumm JOHN SULLIVAN Comment:Testing performed by : [address] [address] MPV 11.0 9.1 - 12.3 fL JOHN SULLIVAN Comment:Testing performed by : [address] [address] RBC 4.83 3.90 - 5.20 M/cumm JOHN SULLIVAN Comment:Testing performed by : [address] [address] MCV 83.9 81.3 - 96.4 fL JOHN SULLIVAN Comment:Testing performed by : [address] [address] MCH 26.9(L) 27.1 - 33.3 pg JOHN SULLIVAN Comment:Testing performed by : [address] [address] MCHC 32.1(L) 32.3 - 35.7 g/dL JOHN SULLIVAN Comment:Testing performed by : [address] [address] RDW CV 13.4 11.1 - 14.9 % JOHN SULLIVAN Comment:Testing performed by : [address] [address] RDW SD 41.3 35.7 - 48.1 fL JOHN SULLIVAN Comment:Testing performed by : [address] [address] NRBC abs 0.00 0.00 - 0.01 K/cumm JOHN SULLIVAN Comment:Testing performed by : [address] [address] Blood Venous blood specimen / Unknown 11/13/2024 11:55 AM CDT 11/13/2024 12:04 PM CDT Derian Figueredo DO LAB BLOOD ORDERABLES Final Result JOHN [address] [facility] Department of Laboratories [place], [place] [id number] * (ABNORMAL) Urinalysis, microscopic only (11/13/2024 11:55 AM CDT) WBC, ur 0-5 0 - 5 /HPF Comment:Testing performed by : [address] [address] RBC, ur >50(A) 0 - 2 /HPF JOHN SULLIVAN Comment:Testing performed by : [address] [address] Epithelial cells, squamous, ur 1-5 0 - 5 /HPF JOHN SULLIVAN Comment:Testing performed by : [address] [place] [address] Culture Reflex Comment Reflex conditions for urine culture (WBC >10) not met. JOHN Comment:Testing performed by : [address] [address] Urine 11/13/2024 11:5 5 AM CDT 11/13/2024 12:04 PM CDT Derian Figueredo DO LAB URINE ORDERABLES Final Result Performing Organization Address [facility] de Phone Number JOHN [address] [place] [address] * Lipase (11/13/2024 11:55 AM CDT) Pathologist [facility] Lipase 28 10 - 99 Units/L Comment:Testing performed by : [address] [address] Blood Venous blood specimen / Unknown 11/13/2024 11:55 AM CDT 11/13/2024 12:04 PM CDT Derian Figueredo DO LAB BLOOD ORDERABLES Final Result Performing Organization Address [facility] de Phone Number [address] [address] * (ABNORMAL) Comprehensive metabolic panel (11/13/2024 11:55 AM CDT) Pathologist [facility] Sodium 139 135 - 145 mmol/L Comment:Testing performed by : [address] [address] Potassium, pl 3.6 3.3 - 4.9 mmol/L JOHN Comment:Testing performed by : [address] [address] Chloride 101 97 - 110 mmol/L JOHN Comment:Testing performed by : [address] [address] CO2 26 22 - 32 mmol/L JOHN Comment:Testing performed by : [address] [address] Anion gap 12 2 - 15 mmol/L JOHN Comment:Testing performed by : [address] [address] BUN 6 6 - 25 mg/dL JOHN Comment:Testing performed by : [address] [address] Creatinine 0.55(L) 0.60 - 1.10 mg/dL JOHN Comment:Testing performed by : [address] [address] Glucose 93 70 - 199 mg/dL [facility] Comment: Interpretive Data Fasting glucose >/= 126 [...] was last revised 2022. Testing performed by: [address] [address] Calcium 9.7 8.5 - 10.3 mg/dL JOHN Comment:Testing performed by : [address] [address] Bilirubin, total 0.8 0.1 - 1.2 mg/dL JOHN Comment:Testing performed by : [address] [address] Protein, pl 8.2 6.5 - 8.5 g/dL JOHN Comment:Testing performed by : [address] [address] Albumin 4.6 3.5 - 5.0 g/dL JOHN Comment:Testing performed by : [address] [address] Alk phos 83 40 - 130 Units/L JOHN Comment:Testing performed by : [address] [address] ALT 13 7 - 45 Units/L JOHN SULLIVAN Comment:Testing performed by : [facility], [address] [place] [address]., [address] AST 25 10 - 45 Units/L JOHN SULLIVAN Comment:Testing performed by : [facility], [address] [place] [address]., [address] Blood 11/13/2024 11:5 5 AM CDT 11/13/2024 12:04 PM CDT Derian Figueredo DO LAB BLOOD ORDERABLES Final Result JOHN [address] [facility] Department [place] [address] * POCT hCG, urine (11/13/2024 11:54 AM CDT) HCG, ur, POC Negative Negative Lot Number [id number] QC Backgroud Clear Acceptable QC Control Line Acceptable Urine 11/13/2024 11:5 4 AM CDT Derian Figueredo DO POINT OF CARE TEST ORDERABL ES Final Result from Last 3 Months Insurance [employer] [facility] Care Teams It Project Coordinator Relationship Specialty Start Date End Date No, Physician PCP - General 11/13/24
== END 2024-12-17 10:59 | disposition home or self-care (01) ==
PROVIDERS: Visit Provider Nurse Practitioner
DX: N64.4 Mastodynia (principal)
CPT/HCPCS: 76642; 77062; 77066; G0279